=== PATIENT | male | born 1945 | race Caucasian/White ===

== ENCOUNTER 2018-11-15 15:49 | Inpatient (IN) ==
[2018-11-15] MEDS ORDERED: Ondansetron 4 MG/2 ML VIAL IVP PRN (20:38)
[2018-11-15] MEDS ORDERED: Naloxone 0.4 MG/ML INJ IVP PRN (20:38)
[2018-11-15] MEDS ORDERED: Acetaminophen 325 MG TABLET PO PRN (20:38)
--- NOTE | 2018-11-15 20:55 | Internal Med History&Physical ---
<Macario Kate - Last Filed: 11/16/18 01:35> Date of Encounter: 11/16/18 Time of Encounter: 20:41 Internal Medicine - H&P: HPI Chief complaint: leg weakness Admitted From: Emergency Dept Plans for Post Hospital Care: Home History of present illness: Mr. Perez is a 73 year old male with a PMHx of COPD, CHF, CKD, chronic back pain who presented to [facility] ED with a complaint of increased LE weakness. He is normally wheelchair bound at home due to chronic degerative disc disease for the past 10 years. He states that he has noticed some increased difficulty in moving his lower extremities both due to increased pain as well as weakness. He has also noticed increased numbness in the posterior legs extending to the mid hamstrings. He does have lower extremity numbness bilaterally up to the mid calf at baseline. He denies any trauma, falls, popping/tearing sensations. Symptoms have been present and constant for about a week. He describes the pain at a sharp, electrical type pain which starts in the back and radiates down the back of the legs. He also has symptoms of subjective fever last week, dysuria, and 4 episodes of urinary incontinence which he has not had before with previous UTIs. He does have to straight cath himself at home due to what sounds like neurogenic bladder, but states he can normally tell when he has a sensation to urinate. He denies any symptoms of chills, chest pains, SOB, nausea, vomiting. He has a colostomy bag and has not noticed any changes in output. Patient has had multiple back surgeries in the past most recently he states around 2005. He also states that he has had multiple office with pain management has tried epidurals, ablations, pain regimens. n the [facility] ED, vital sigs were unremarkable. Labs showed WBC 7.9, hemoglobin 11.4. Chemistry showed sodium 141, potassium 4.2, chloride 102, bicarbonate 30, BUN/creatinine of 16/1.07, glucose 134. UA was positive for nitrates, leukocyte esterase, bacteria and urine culture was obtained. CT of the lumbar spine showed no acute findings but did demonstrate severe degenerative changes. [facility] did contact Dr. Mantilla who recommended Neurology consultation. He was given 1 dose of rocephin and transferred to [place]. At time of my interview, patient is resting comforably. He has had no further episodes of incontinence since this morning. His pain is moderately well controlled after Toradol and [place] in [place]. His weakness is the same. Medical History as above Past surgical history: Multiple orthopedic and spinal surgeries. Social history: Never smoker, rare whiskey drinker, medical marijuana user, denies other drugs Family history: Noncontributory Past Med Surg Social Fam HX - Past Medical History Medical history: CHF, COPD Additional medical history: c. diff, neuropathy Psychiatric history: no psych history - Past Surgical History Surgical History: colectomy, colostomy Additional surgical history: failed back surgery, colectomy with colostomy - Social History Smoking Status: Never smoker Smokeless Tobacco Status: No Alcohol use: none Drug use: marijuana - Family History Mother Living Status: Hx Family Cardiac Disorders: Yes Hx Family Respiratory Disorders: No Hx Family Cancer: No Hx Family Endocrine Disorder: Yes Internal Medicine - H&P: Meds Lisinopril 2.5 mg PO DAILY 05/31/18 [History] Nystatin POWDER [Nystop] 1 appl TP TID PRN 05/31/18 [History] Tamsulosin [Flomax] 0.4 mg PO DAILY 05/31/18 [History] Ibuprofen [Ibu-200] 200 mg PO DAILY PRN 06/01/18 [History] Oxybutynin Chloride [Ditropan XL] 5 mg PO DAILY 06/01/18 [History] Pregabalin [Lyrica] 150 mg PO BID 06/02/18 [History] Albuterol Sulfate [Proventil Inhaler] 2 puff IH O6DLAIC PRN inhaler 06/05/18 [Rx] OxyCODONE/APAP 10/325 [Percocet 10/325 MG] 1 each PO Q6H PRN tablet 06/05/18 [Rx] Amoxicillin/Clavulanate [Augmentin] 875 mg PO BIDWM #14 tablet 06/07/18 [Rx] Warfarin [Coumadin] 2.5 mg PO 1800 #5 tablet 06/07/18 [Rx] Gabapentin [Neurontin] 600 mg PO TID 11/15/18 [History] Allergy/AdvReac Type Severity Reaction Status Date / Time No Known Allergies Allergy Verified 06/01/18 16:44 All Systems PM: A 10-system review of systems was performed and is negative for pertinent findings except as documented above in the HPI. Review of systems: - Constitutional: Admits to fevers. Denies chills, weight loss, generalized fatigue - EENT: Denies vision changes/blurriness, tinnitus, rhinorrhea, congestion, sore throat - CVS: Denies chest pain, palpitations, ZAVALA, orthopnea, edema, PND, - Pulm: Denies SOB, cough, sputum, hematemesis, wheezing - GI: Denies abdominal pain, anorexia, nausea, vomiting, diarrhea, constipation, melena - : Admits to dysuria, incontinence. Denies increased frequency, urgency, hematuria, - MSK: Admits to back and leg pain, weakness. Decreased ROM. - Skin: Denies rashes, ulcers, color changes, - Neuro: Admits to numbness, tingling. Denies SHAFER, - Constitutional Vitals: Temp Pulse Resp BP Pulse Ox 98.1 F 84 19 114/72 93 11/15/18 18:05 11/15/18 18:05 11/15/18 18:05 11/15/18 18:05 11/15/18 18:05 Exam: Gen.: Vitals noted. No acute distress. AAOx3, resting comfortably in bed. Morbidly obese. HEENT: PERRL/EOMI, oropharynx clear, Normocephalic, atraumatic, MMM Cardiac: RRR, no murmur, +S1/S2, 2+ BLE edema to mid calf Pulmonary: CTA bilaterally, no wheezes, rales or rhonchi, equal chest expansion, unlabored breathing Abdomen: soft, nontender, BS noted, no guarding, no palpable HSM. Colostomy in place, vental hernia Skin: warm and dry, no visible lesions. MSK: ROM passively intact but painful, no joint swelling noted, gait no assessed while in bed. Muscle strength 1/5 in bilateral LE. Reflexes unable to be elicited. Neuro: A&Ox3, moves all extremities, numb at baseline in feet, reported decreased sensation in posterior thigh, reports no saddle anesthesia. Psych: Appropriate mood and behavior, AOx3 Internal Med - H&P Results - Labs CBC & Chem 7: 11/16/18 00:13 11/16/18 00:13 - Assessment and Plan (1) Weakness Current Visit: Yes Status: Acute Assessment and plan: - Patient reported worsening of chronic bilateral extremity weakness - Also reports urinary incontinence which is not present at baseline - Patient does have a major degerative disc disease for which he is wheelchair bound - Denies truma - Suspect that this is worsening of his chronic disease, however with the incontinence and numbness we cannot exclude cauda equina - CT lumbar in [facility] shows no acute disease but severe chronic changes - No saddle anesthesia on my exam today. Bilateral weakness, numbness noted in extremities. - Dr. Mantilla called at [facility], reportedly did not feel that his services were needed at this time and recommended Neuro - Will order MRI lumbar spine stat Plan - MRI - Pain control, will start steroids - Will consider consultation with Neuro vs Ortho pending MRI results - Will consult spine surgery as well as neuro - Consider PT/OT if MRI negative (2) Degenerative disc disease Current Visit: Yes Status: Chronic Assessment and plan: - Chronic with multiple surgeries - Most recent 2005 - Pain moderately well controlled - Denies trauma and CT shows chronic changes - as above Qualifiers: Spinal region: lumbar Qualified Code(s): M51.36 - Other intervertebral disc degeneration, lumbar region (3) UTI (urinary tract infection) Current Visit: Yes Status: Acute Assessment and plan: - UA at [facility] shows evidence of infection, urine culture obtained there - Patient reports frequent UTIs, approximately every 6 months - No previous cultures to go off of. - Patient straight catheterization dependent at baseline - Symptoms include dysuria, incontinence. ?fever - Will start Rocephin Qualifiers: Urinary tract infection type: acute cystitis Hematuria presence: without hematuria Qualified Code(s): N30.00 - Acute cystitis without hematuria (4) COPD (chronic obstructive pulmonary disease) Current Visit: Yes Status: Chronic Assessment and plan: does not appear to be in acute exacerbation continue home inhalers once reconciled. Qualifiers: COPD type: emphysema Emphysema type: unspecified Qualified Code(s): J43.9 - Emphysema, unspecified (5) Morbid obesity Current Visit: Yes Status: Chronic Assessment and plan: chronic, advised dietary changes. Wheelchair bound (6) Urinary retention Current Visit: Yes Status: Chronic Assessment and plan: chronic, will place benjamin (7) DVT prophylaxis Current Visit: Yes Status: Acute Assessment and plan: continue home coumdin, pharmacy to dose - Time Spent With Patient Total time spent is greater than 50% in coordination of care (as documented) at patient's floor/unit and/or counseling patient: <Brock Pal - Last Filed: 11/16/18 03:43> Date of Encounter: 11/16/18 Time of Encounter: 02:00 - Constitutional Constitutional: no chills, no fever(s) - EENT Eyes: no blurry vision, no change in vision Ears: no ear pain, no tinnitus Nose, mouth and throat: no nasal congestion, no sinus pressure, no sore throat - Cardiovascular Cardiovascular ROS IM: no chest pain, no dyspnea - Respiratory Respiratory: no cough, no chest congestion, no excessive phlegm production - Gastrointestinal Gastrointestinal: no abdominal pain, no diarrhea, no vomiting - Genitourinary Genitourinary ROS male: dysuria, urinary frequency, urinary incontinence, no flank pain, no hematuria - Integumentary Integumentary IM: no rash, no jaundice - Neurological Neurological ROS: numbness (chronic BLE), no frequent falls, no headache(s) - Psychiatric Psychiatric: no anxiety, no depression - Allergic/Immunologic Allergic/Immunologic: no GI upset with certain foods - Constitutional Vitals: Temp Pulse Resp BP Pulse Ox 97.8 F 76 16 118/74 94 11/15/18 23:46 11/15/18 23:46 11/15/18 23:46 11/15/18 23:46 11/15/18 23:46 General appearance: Present: cooperative, A&O X 3, pleasant - Head Head exam: Present: normal inspection - Eye Eye exam: Present: PERRL. Absent: scleral icterus - ENT ENT exam: Present: mucous membranes dry, normal exam, normal oropharynx - Neck Neck exam general surgery: Present: full ROM, supple, trachea midline. Absent: tenderness, nuchal rigidity, thyromegaly - Respiratory Respiratory exam: Present: CTAB. Absent: chest wall tenderness, rales, rhonchi, wheezes - Cardiovascular Cardiovascular exam: Present: distant heart sounds, +S1, +S2. Absent: diastolic murmur, systolic murmur - GI/Abdominal GI/Abdominal exam: Present: normal bowel sounds, soft. Absent: hepatomegaly, splenomegaly, tenderness - Extremities Exam Extremities exam: Present: pedal edema (1-2+), warm, radial pulses palpable and symmetrical. Absent: calf tenderness, joint swelling, tenderness - Neurological Exam Neurological exam: Present: alert, CN II-XII intact, motor sensory deficit (numbers both feet up to mid calf -- chronic, not new) - Psychiatric Psychiatric exam: Present: normal affect, normal mood - Skin Skin exam: Present: dry, intact, warm Internal Med - H&P Results - Labs CBC & Chem 7: 11/16/18 00:13 11/16/18 00:13 Labs: Short CBC 11/16/18 Range/Units 00:13 WBC 7.1 (4.3-11.1) K/mcL Hgb 11.1 L (12.9-16.9) g/dL Hct 37.6 (37.5-50.1) % Plt Count 255 (140-400) K/mcL Neutrophils # 3.9 (1.6-8.9) K/mcL BMP 11/16/18 00:13 Sodium 137 Potassium 4.0 Chloride 105 Carbon Dioxide 26 BUN 20 Creatinine 1.10 Glucose 140 H Calcium 8.6 - Time Spent With Patient Total time spent is greater than 50% in coordination of care (as documented) at patient's floor/unit and/or counseling patient: - Attending Attestation I discussed the patient [place], past medical history, review of systems, lab data, imaging data, and exam findings with Dr. Kate. Patient has had chronic bilateral lower extremity weakness and numbness for over 10 years, but he recently noticed increasing weakness and numbness in his lower extremities over last week or so. He has been wheelchair-bound for over 10 years but he does transition out of wheelchair to his bed, couch, and/or other furniture pieces as needed. Over the last few days, he has been unable to transfer and has become progressively weaker. He has no new focal neurologic deficits other than increased weakness and numbness in his feet/legs beyond his baseline. He does not have any saddle anesthesia, but he has been incontinent of urine over last several days. He also does have UTI. Because of his above complaints, he went to [facility] and was transferred here for further workup and care. CT lumbar spine did not show any acute pathology and spine surgery consult was placed from [facility]. We will order an MRI of the spine and consult both spine and neurology services. Patient will likely benefit from PT and OT consults as well after he is seen by neurology and spine surgery. Steroids have been initiated empirically. However, I have very low suspicion for and CT does not suggest any evidence of spinal cord impingement. We will await further workup and treatment guidelines from neurology and spine surgery. Other than my comments above and documented exam findings, I agree with Dr. Kate's assessment and plan.
[2018-11-15] MEDS: *HR* OxyCODONE/APAP 7.5/325 TABLET PO PRN (21:15)
[2018-11-16 01:06] LABS: Basophils % 0.6 %; Eosinophils # 0.4 K/mcL (0.0-0.6); Hematocrit 37.6 % (37.5-50.1); Hemoglobin 11.1 g/dL (12.9-16.9); Lymphocytes % 28.6 %; Mean Corpuscular HGB Conc 29.5 g/dL (31.6-35.5); Mean Corpuscular Hemoglobin 23.3 pg (28.0-33.3); Mean Platelet Volume 8.9 fL (9.4-12.4); Monocytes # 0.7 K/mcL (0.0-1.3); Neutrophils # 3.9 K/mcL (1.6-8.9); Platelet Count 255 K/mcL (140-400); Red Blood Count 4.76 M/mcL (4.19-5.50); Red Cell Distribution Width 14.5 % (11.5-14.5); Segmented Neutrophils % 54.8 %; White Blood Count 7.1 K/mcL (4.3-11.1)
[2018-11-16 01:15] LABS: INR 2.1
[2018-11-16] MEDS: methylPREDNISolone 125 MG/2 ML VIAL IVP SCH ×4 (01:24→22:05)
[2018-11-16] MEDS: Gabapentin 300 MG CAPSULE PO SCH ×4 (01:25→20:40)
[2018-11-16] MEDS: Nystatin POWDER 30 GM BOTTLE TP SCH ×4 (01:25→20:41)
[2018-11-16 01:26] LABS: BUN/Creatinine Ratio 18 (6-26); Blood Urea Nitrogen 20 mg/dL (8-23); Calcium 8.6 mg/dL (8.6-10.3); Carbon Dioxide 26 mEq/L (23-29); Chloride 105 mEq/L (98-107); Glucose 140 mg/dL (70-105); Osmolality,Calculated 289 (280-300); Sodium 137 mEq/L (136-145); eGFR For African Americans > 60 (> 60); eGFR For Non-African Americans > 60 (> 60)
[2018-11-16] MEDS: cefTRIAXone 1,000 MG in Water for inj. (sterile) 10 ML IVP SCH (08:18)
--- NOTE | 2018-11-16 08:18 | Neurology - Consult Note ---
<Stefano Guerrero - Last Filed: 11/16/18 10:49> Date of Encounter: 11/16/18 Time of Encounter: 08:18 Assessment and Plan (1) Numbness Current Visit: Yes Status: Acute Patient presented with chief complaint of worsening lower extremity pain, weakness, and numbness, with associated urinary incontinence His baseline and related changes are illustrated in HPI, there was obviously a concern for Cauda Equina syndrome CT of the lumbar spine was performed at outside hospital demonstrating stable chronic Lumbar Disc Disease, no acute changes Due to urinary incontinence however patient was transferred to [facility] hospitalist team who ordered stat MRI and consulted Neurology and Spine Surgery Patient was also started on Solu-medrol and Rocephin for UTI, which he has chronically but not usually associated with incontinence As of this morning MRI is not completed, patient has had no worsening of symptoms or new symptoms Exam demonstrates significant lower extremity numbness and weakness but no saddle anesthesia or other neurological deficits Symptoms are most likely related to deconditioning and UTI exacerbating chronic lumbar disc disease and LE deficits Cauda equina is less likely, we will follow MRI results, recommend continuing Solu-medrol, we have also ordered B12 and Folate, agree with Rocephin GBS is considered, however he does not have history of recent GI illness or immunization If MRI is positive patient will require urgent surgical evaluation, if negative he will most likely benefit from aggressive outpatient rehabilitation We will continue to follow and make recommendations, further recommendations per Dr. Simons (2) Weakness Current Visit: Yes Status: Acute (3) Degenerative disc disease Current Visit: Yes Status: Chronic Qualifiers: Spinal region: lumbar Qualified Code(s): M51.36 - Other intervertebral disc degeneration, lumbar region (4) UTI (urinary tract infection) Current Visit: Yes Status: Acute Qualifiers: Urinary tract infection type: acute cystitis Hematuria presence: without hematuria Qualified Code(s): N30.00 - Acute cystitis without hematuria History of Present Illness Chief complaint: LE Weakness HPI: Mr. Perez is a pleasant 73 year old male with a past medical history of COPD, CHF, CKD, lumbar degenerative disc disease and chronic low back pain. He was transferred overnight from [facility]. Patient is chronically wheelchair bound due to chronic lower extremity pain and weakness secondary to lumbar degenerative disc disease. He also requires straight catheterization due to chronic neurogenic bladder and has frequent urinary tract infections. Over the last week the patient has experienced worsening bilateral lower extremity pain and weakness past his baseline, and has also experienced urinary incontinence which is a new symptom for him. He presented to [facility] for the symptoms where they performed CT of the lumbar spine which was negative for any new changes as well as any evidence of new spinal cord impingement or cauda equina. However due to the urinary incontinence he was transferred to [place] to rule out new spinal cord impingement or cauda equina with MRI. The patient was accepted by the hospitalist team here who admitted him for workup and ordered stat MRI of the lumbar spine and consulted neurology and spinal surgery. As of this morning MRI is not completed, luckily patient has not had any worsening of his symptoms. On my exam the patient confirms the story received in documentation stating that over the last week he has had worsening of his chronic bilateral lower extremity pain and numbness. He states that his baseline is numbness in his calves and feet and pain in bilateral lower extremities from the low back to the distal ex tremities. However over the last week his numbness has extended up to his hips and his pain has worsened. His baseline has also included severe weakness of his plantar flexion and dorsiflexion as well as moderate weakness involving his quadriceps/hamstrings/gluteal muscles. However over the last week his weakness has increased in his hips and thighs to wear he is now unable to pivot and transfer like he was previously. He states that these symptoms did not progress insidiously over the last week and did not have an acute onset, and were not related with any associated symptoms such as any upper extremity weakness or numbness, facial droop, visual changes, altered mental status, convulsions, or other stroke or seizure like symptoms. However he has had urinary incontinence several times over the last week, where he was not able to tell he was urinating. Urinary incontinence is new to him, however he does deny saddle anesthesia. I informed him that based on his history and physical there was a concern for cauda equina which is why he was transferred here and MRI is pending. He stated that he is hopeful that the MRI will not show any new spinal cord impingement and that his symptoms are simply due to deconditioning. He informed me that his goal is to proceed to inpatient rehabilitation where he can gain his strength and independence back and be able to function at home as he was prior to this week. Past Med Surg Social Fam HX - Past Medical History Medical history: CHF, COPD Additional medical history: c. diff, neuropathy Psychiatric history: no psych history - Past Surgical History Surgical History: colectomy, colostomy Additional surgical history: failed back surgery, colectomy with colostomy - Social History Smoking Status: Never smoker Smokeless Tobacco Status: No Alcohol use: none Drug use: marijuana - Family History Mother Living Status: Hx Family Cardiac Disorders: Yes Hx Family Respiratory Disorders: No Hx Family Cancer: No Hx Family Endocrine Disorder: Yes Medications and Allergies Lisinopril 2.5 mg PO DAILY 05/31/18 [History] Nystatin POWDER [Nystop] 1 appl TP TID PRN 05/31/18 [History] Tamsulosin [Flomax] 0.4 mg PO DAILY 05/31/18 [History] Ibuprofen [Ibu-200] 200 mg PO DAILY PRN 06/01/18 [History] Oxybutynin Chloride [Ditropan XL] 5 mg PO DAILY 06/01/18 [History] Pregabalin [Lyrica] 150 mg PO BID 06/02/18 [History] Albuterol Sulfate [Proventil Inhaler] 2 puff IH [id number] PRN inhaler 06/05/18 [Rx] OxyCODONE/APAP 10/325 [Percocet 10/325 MG] 1 each PO Q6H PRN tablet 06/05/18 [Rx] Amoxicillin/Clavulanate [Augmentin] 875 mg PO BIDWM #14 tablet 06/07/18 [Rx] Warfarin [Coumadin] 2.5 mg PO 1800 #5 tablet 06/07/18 [Rx] Gabapentin [Neurontin] 600 mg PO TID 11/15/18 [History] Allergy/AdvReac Type Severity Reaction Status Date / Time No Known Allergies Allergy Verified 06/01/18 16:44 All Systems: The remainder of the systems were reviewed and are negative Review of Systems: 10 point review of systems is negative other than mentioned in history of pr esent illness. Physical Examination - Vital Signs Vital Signs: Initial Vital Signs Temp Pulse Resp BP Pulse Ox 98.1 F 84 19 114/72 93 11/15/18 18:05 11/15/18 18:05 11/15/18 18:05 11/15/18 18:05 11/15/18 18:05 - Exam Exam: General Examination: *CONSTITUTIONAL: Alert and oriented x3, no acute distress *GENERAL APPEARANCE OF PATIENT appears healthy and well groomed *EYES: pupils equal, round, reactive to light and accommodation, conjunctiva c lear without masses or ulcerations *ASSESSMENT OF MUSCLE STRENGTH IN THE UPPER AND LOWER EXTREMITIES bilateral deltoid, bicep, tricep, automation technician strength 5/5, hip flexors and quadriceps 2/5 anterior tibialis, plantarflexion of the foot 0/5 *MUSCLE TONE IN THE UPPER AND LOWER EXTREMITIES normal. No abnormal movements, fasciculations or atrophy identified. Neurological: *ORIENTATION to person, situation, time and place *LANGUAGE AND FUNCTION no significant aphasia or dysarthia was noted *ATTENTION AND CONCENTRATION are normal *FUND OF KNOWLEDGE aware of current events, past history, vocabulary *MENTAL attention span and concentration normal. *CN II visual guardado intact *CN III,IV, PERRLA extraocular eye movements were full, no nystagmus and no ptosis noted. *CN V shows normal sensation and jaw opens symmetrically. *CN VII shows normal facial movement symmetrically, upper and lower bilaterally. *CN VIII shows no significant hearing loss on exam *CN IX-X palate elevated symmetrically *CN XI normal strength in the sternocleidomastoid muscles, symmetrical shoulder shrugging. *CN XII tongue protruded in the midline, with normal strength and movement. *SENSORY EXAMINATION light touch normal from the waist up. Light touch is present and normal in the groin and saddle region. Light touch sensation is present but diminished from the waist to the proximal leg, slightly worse on the left. Light touch, deep pressure, proprioception are absent in bilateral ankles and toes. *REFLEXES: deep tendon reflexes were normal and symmetrical in the bilateral upper extremities , absent in bilateral lower extremities *CEREBELLAR TESTING normal finger to nose testing *PAIN LEVEL no pain on palpation, pain with manipulation of the hips and lower back Results - Laboratory Findings CBC and BMP: 11/16/18 06:29 11/16/18 06:29 Abnormal lab findings: Abnormal lab results Hgb 11.1 g/dL (12.9-16.9) L 11/16/18 00:13 MCV 79.0 fL (83.0-100.0) L 11/16/18 00:13 MCH 23.3 pg (28.0-33.3) L 11/16/18 00:13 MCHC 29.5 g/dL (31.6-35.5) L 11/16/18 00:13 MPV 8.9 fL (9.4-12.4) L 11/16/18 00:13 PT 24.0 Seconds (9.4-12.1) H 11/16/18 00:13 Glucose 140 mg/dL (70-105) H 11/16/18 00:13 Consult Discharge Plan - Plan Referrals: Helga Ross, WIRE WORKER [Primary Care Provider] - <Haresh Simons I - Last Filed: 11/16/18 16:54> Date of Encounter: 11/16/18 Assessment and Plan (1) Lumbar spinal stenosis Current Visit: Yes Status: Acute This patient who has an history of for severe lumbar stenosis status post surgeries baseline has a footdrop as well as significant weakness in lower extremities and is bedbound now admitted with increasing weakness in both upper extremities and has difficulty in getting up and at the same time also having i ncreasing urinary incontinence, he already had a colostomy bag in place. Now with these increasing symptoms and with a history of severe lumbar stenosis certainly concerned that he may have worsening of his stenosis Scheduled for MRI of the lumbar spine are recommended doing it is stat. Has been is started on IV steroids suggested to continue on it On neurological examination did not see, sensory level though he did have a decreased sensation to the pinprick in his both lower extremities above the knees bilaterally and minimal movement in hip flexion and extension and knee extension in the right lower extremity more than the left. In the patient like this who had a significant baseline weakness and a stenosis of be difficult a date that indeed it is a cauda equina but certainly that poss ibility remains. As neurological examination is very limited Suggest MRI scan SUZANNE at the same time I would recommend a spine consultation with Dr. Mercado's, to see if indeed he would benefit from some intervention or if unable to get any intervention locally he may need to be transferred to a tertiary care center-like [facility] where he had his previous spine surgeries. Haresh Simons MD (2) Numbness Current Visit: Yes Status: Acute Pt was seen and examined, my medical decision was reviewed with the Resident Physician, I agree with the documented findings, disposition and treatment plan, as described except to the extent set forth below Haresh Simons MD History of Present Illness HPI: Mr. Perez is a 73 year old male All Systems: The remainder of the systems were reviewed and are negative Physical Examination - Vital Signs Vital Signs: Initial Vital Signs Temp Pulse Resp BP Pulse Ox 98.1 F 84 19 114/72 93 11/15/18 18:05 11/15/18 18:05 11/15/18 18:05 11/15/18 18:05 11/15/18 18:05 Results - Laboratory Findings CBC and BMP: 11/16/18 06:29 11/16/18 06:29 Abnormal lab findings: Abnormal lab results Hgb 12.1 g/dL (12.9-16.9) L 11/16/18 06:29 MCV 77.7 fL (83.0-100.0) L 11/16/18 06:29 MCH 22.9 pg (28.0-33.3) L 11/16/18 06:29 MCHC 29.4 g/dL (31.6-35.5) L 11/16/18 06:29 RDW 14.6 % (11.5-14.5) H 11/16/18 06:29 MPV 9.2 fL (9.4-12.4) L 11/16/18 06:29 PT 24.0 Seconds (9.4-12.1) H 11/16/18 00:13 Glucose 177 mg/dL (70-105) H 11/16/18 06:29 Positive (Negative) A 11/16/18 09:30
[2018-11-16 08:36] LABS: Basophils % 0.3 %; Eosinophils % 0.4 %; Hematocrit 41.1 % (37.5-50.1); Hemoglobin 12.1 g/dL (12.9-16.9); Immature Granulocytes % 2.1 % (0-4); Lymphocytes # 1.2 K/mcL (0.6-4.6); Lymphocytes % 16.6 %; Mean Corpuscular HGB Conc 29.4 g/dL (31.6-35.5); Mean Corpuscular Hemoglobin 22.9 pg (28.0-33.3); Mean Corpuscular Volume 77.7 fL (83.0-100.0); Mean Platelet Volume 9.2 fL (9.4-12.4); Monocytes # 0.1 K/mcL (0.0-1.3); Monocytes % 1.3 %; Neutrophils # 5.9 K/mcL (1.6-8.9); Platelet Count 264 K/mcL (140-400); Red Blood Count 5.29 M/mcL (4.19-5.50); Red Cell Distribution Width 14.6 % (11.5-14.5); Segmented Neutrophils % 79.3 %; White Blood Count 7.5 K/mcL (4.3-11.1)
[2018-11-16 08:52] LABS: BUN/Creatinine Ratio 22 (6-26); Blood Urea Nitrogen 22 mg/dL (8-23); Carbon Dioxide 25 mEq/L (23-29); Chloride 102 mEq/L (98-107); Glucose 177 mg/dL (70-105); Magnesium 2.1 mg/dL (1.6-2.6); Osmolality,Calculated 292 (280-300); Potassium 4.9 mEq/L (3.5-5.1); Sodium 137 mEq/L (136-145); eGFR For African Americans > 60 (> 60); eGFR For Non-African Americans > 60 (> 60)
[2018-11-16] MEDS: *HR* OxyCODONE/APAP 7.5/325 TABLET PO PRN ×2 (11:21→17:37)
--- NOTE | 2018-11-16 11:37 | Internal Med Progress Note ---
Hospitalist Progress Note - Encounter Date of Encounter: 11/16/18 Time of Encounter: 11:35 - Subjective Interval History: Patient seen and examined in the room. He reported unable to move both legs with accompanied numbness on the back of both legs, which have been ongoing for a week. Denies headache, seizure activity, dysphagia, or aphasia. Has history of back pain and back surgery with chronic bilateral leg weakness, however the weakness significantly worsened in the past week so that he was unable to move both legs at all. His baseline is that he can move both legs and the put on socks. - Exam Vitals: Temp Pulse Resp BP Pulse Ox 97.9 F 90 16 125/70 92 11/16/18 11:10 11/16/18 11:10 11/16/18 11:10 11/16/18 11:10 11/16/18 11:10 Exam: Gen.: Vitals noted. No acute distress. AAOx3, resting comfortably in bed. Morbidly obese. HEENT: PERRL/EOMI, oropharynx clear, Normocephalic, atraumatic, MMM Cardiac: RRR, no murmur, +S1/S2, 2+ BLE edema to mid calf Pulmonary: CTA bilaterally, no wheezes, rales or rhonchi, equal chest expansion, unlabored breathing Abdomen: soft, nontender, BS noted, no guarding, no palpable HSM. Colostomy in place, vental hernia Skin: warm and dry, no visible lesions. MSK: ROM passively intact but painful, no joint swelling noted, gait no assessed while in bed. Muscle strength 1/5 in bilateral LE. Reflexes unable to be falguni cited. Neuro: A&Ox3, moves all extremities, numb at baseline in feet, reported decreased sensation in posterior thigh, reports no saddle anesthesia. Psych: Appropriate mood and behavior, AOx3 - Assessment and Plan (1) Weakness Current Visit: Yes Status: Acute Assessment and Plan: 73-year-old male presented with acute onset of bilateral leg weakness accompanied by numbness. He has history of chronic back pain and back surgery, has baseline bilateral leg weakness and on wheelchair, but his baseline is that he was able to lift up both legs and put on socks, however, he cannot perform these for a week. Acute cord compression was suspected by neurology, IV steroids were started. Pending lumbar MRI. Neurology on board, appreciate help. (2) Morbid obesity Current Visit: No Status: Chronic Assessment and Plan: Weight control discussed with patient. (3) Hx of deep venous thrombosis Current Visit: No Status: Chronic Assessment and Plan: Continue Coumadin, pharmacy to dose. (4) Degenerative disc disease Current Visit: No Status: Chronic Assessment and Plan: Continue pain control, management as above. (5) UTI (urinary tract infection) Current Visit: Yes Status: Acute Assessment and Plan: Has history of of MRSA UTI. Urine culture pending, currently on Rocephin. (6) DVT prophylaxis Current Visit: Yes Status: Acute Assessment and Plan: Continue Coumadin. - Time Spent with Patient Total time spent is greater than 50% in coordination of care (as documented) at patient's floor/unit and/or counseling patient: Greater than 35 minutes Plan of Care Discussed with: patient Internal Medicine: Result - Labs CBC & Chem 7: 11/16/18 06:29 11/16/18 06:29 Labs: Short CBC 11/16/18 11/16/18 Range/Units 00:13 06:29 WBC 7.1 7.5 (4.3-11.1) K/mcL Hgb 11.1 L 12.1 L (12.9-16.9) g/dL Hct 37.6 41.1 (37.5-50.1) % Plt Count 255 264 (140-400) K/mcL Neutrophils # 3.9 5.9 (1.6-8.9) K/mcL BMP 11/16/18 11/16/18 00:13 06:29 Sodium 137 137 Potassium 4.0 4.9 Chloride 105 102 Carbon Dioxide 26 25 BUN 20 22 Creatinine 1.10 1.01 Glucose 140 H 177 H Calcium 8.6 9.0 - ABG Interpretation ABG results: PT/INR, D-dimer PT 24.0 Seconds (9.4-12.1) H 11/16/18 00:13 Consult Discharge Plan - Plan Referrals: Helga Ross, MANUFACTURING TEAM LEADER [Primary Care Provider] - (4) Degenerative disc disease Qualifiers: Spinal region: lumbar Qualified Code(s): M51.36 - Other intervertebral disc degeneration, lumbar region (5) UTI (urinary tract infection) Qualifiers: Urinary tract infection type: acute cystitis Hematuria presence: without hematuria Qualified Code(s): N30.00 - Acute cystitis without hematuria
[2018-11-16 12:18] LABS: Folate 15.3 ng/mL (3.0-16.0)
[2018-11-16] MEDS ORDERED: *HR* Warfarin 3 MG TABLET PO ONE (18:00)
[2018-11-16] MEDS ORDERED: Warfarin perPT PO PRN (18:00)
[2018-11-16] MEDS ORDERED: 0.9 % Sodium Chloride Mini Bag 100 ML ONE (22:32)
[2018-11-17] MEDS ORDERED: 0.9 % Sodium Chloride Mini Bag 100 ML ONE (02:43)
[2018-11-17 07:56] LABS: Basophils % 0.1 %; Hematocrit 37.4 % (37.5-50.1); Hemoglobin 11.2 g/dL (12.9-16.9); Immature Granulocytes % 1.5 % (0-4); Lymphocytes # 1.5 K/mcL (0.6-4.6); Lymphocytes % 11.8 %; Mean Corpuscular HGB Conc 29.9 g/dL (31.6-35.5); Mean Platelet Volume 9.2 fL (9.4-12.4); Monocytes # 0.3 K/mcL (0.0-1.3); Monocytes % 2.5 %; Neutrophils # 10.7 K/mcL (1.6-8.9); Platelet Count 263 K/mcL (140-400); Red Blood Count 4.86 M/mcL (4.19-5.50); Red Cell Distribution Width 14.3 % (11.5-14.5); Segmented Neutrophils % 84.1 %
[2018-11-17 07:59] LABS: White Blood Count 12.7 K/mcL (4.3-11.1)
[2018-11-17 08:00] LABS: INR 1.4; Prothrombin Time 15.6 Seconds (9.4-12.1)
[2018-11-17] MEDS: cefTRIAXone 1,000 MG in Water for inj. (sterile) 10 ML IVP SCH (08:02)
[2018-11-17] MEDS: Gabapentin 300 MG CAPSULE PO SCH ×2 (08:02→13:43)
[2018-11-17] MEDS: *HR* OxyCODONE/APAP 7.5/325 TABLET PO PRN ×3 (08:03→17:55)
[2018-11-17 08:09] LABS: BUN/Creatinine Ratio 26 (6-26); Blood Urea Nitrogen 24 mg/dL (8-23); Calcium 8.9 mg/dL (8.6-10.3); Carbon Dioxide 25 mEq/L (23-29); Chloride 102 mEq/L (98-107); Glucose 230 mg/dL (70-105); Osmolality,Calculated 295 (280-300); Potassium 4.3 mEq/L (3.5-5.1); Sodium 137 mEq/L (136-145); eGFR For African Americans > 60 (> 60); eGFR For Non-African Americans > 60 (> 60)
--- NOTE | 2018-11-17 08:58 | Internal Med Progress Note ---
Hospitalist Progress Note - Encounter Date of Encounter: 11/17/18 Time of Encounter: 08:46 - Subjective Interval History: Patient seen and examined in the room. He had an uneventful night. Denies fever, chills, or night sweats. - Exam Vitals: Temp Pulse Resp BP Pulse Ox 97.9 F 84 16 164/81 95 11/17/18 07:18 11/17/18 07:18 11/17/18 07:18 11/17/18 07:18 11/17/18 07:18 Exam: Gen.: Vitals noted. No acute distress. AAOx3, resting comfortably in bed. Morbidly obese. HEENT: PERRL/EOMI, oropharynx clear, Normocephalic, atraumatic, MMM Cardiac: RRR, no murmur, +S1/S2, 2+ BLE edema to mid calf Pulmonary: CTA bilaterally, no wheezes, rales or rhonchi, equal chest expansion, unlabored breathing Abdomen: soft, nontender, BS noted, no guarding, no palpable HSM. Colostomy in place, vental hernia Skin: warm and dry, no visible lesions. MSK: ROM passively intact but painful, no joint swelling noted, gait no assessed while in bed. Muscle strength 1/5 in bilateral LE. Reflexes unable to be elicited. Neuro: A&Ox3, moves all extremities, numb at baseline in feet, reported decreased sensation in posterior thigh, reports no saddle anesthesia. Psych: Appropriate mood and behavior, AOx3 - Assessment and Plan (1) Weakness Current Visit: Yes Status: Acute Assessment and Plan: 11/16 73-year-old male presented with acute onset of bilateral leg weakness accompanied by numbness. He has history of chronic back pain and back surgery, has baseline bilateral leg weakness and on wheelchair, but his baseline is that he was able to lift up both legs and put on socks, however, he cannot perform these for a week. Acute cord compression was suspected by neurology, IV steroids were started. Pending lumbar MRI. Neurology on board, appreciate help. 11/17 Lumbar spine MRI showed severe spinal stenosis at the T11-T12. Spinal surgery was consulted, thoracic spine MRI ordered. Continue IV steroids or not. INR 2.1 yesterday received vitamin K and FFP overnight, current INR 1.4. Neuro and orthopedics on board, appreciate help. (2) Morbid obesity Current Visit: No Status: Chronic Assessment and Plan: Weight control discussed with patient. (3) Hx of deep venous thrombosis Current Visit: No Status: Chronic Assessment and Plan: Coumadin on hold due to of common surgery. (4) Degenerative disc disease Current Visit: No Status: Chronic Assessment and Plan: Continue pain control, management as above. (5) UTI (urinary tract infection) Current Visit: Yes Status: Acute Assessment and Plan: Has history of of MRSA UTI. Urine culture pending, currently on Rocephin. Also started patient on vancomycin yesterday due to possible recurrent MRSA UTI. (6) DVT prophylaxis Current Visit: Yes Status: Acute Assessment and Plan: SCDs, Coumadin on hold due to upcoming surgery. - Time Spent with Patient Total time spent is greater than 50% in coordination of care (as documented) at patient's floor/unit and/or counseling patient: Greater than 35 minutes Plan of Care Discussed with: patient Internal Medicine: Result - Labs CBC & Chem 7: 11/17/18 07:15 11/17/18 07:15 Labs: Short CBC 11/17/18 Range/Units 07:15 WBC 12.7 H D (4.3-11.1) K/mcL Hgb 11.2 L (12.9-16.9) g/dL Hct 37.4 L (37.5-50.1) % Plt Count 263 (140-400) K/mcL Neutrophils # 10.7 H (1.6-8.9) K/mcL BMP 11/16/18 11/17/18 06:29 07:15 Sodium 137 137 Potassium 4.9 4.3 Chloride 102 102 Carbon Dioxide 25 25 BUN 22 24 H Creatinine 1.01 0.94 Glucose 177 H 230 H Calcium 9.0 8.9 - ABG Interpretation ABG results: PT/INR, D-dimer PT 15.6 Seconds (9.4-12.1) H 11/17/18 07:15 - Impressions Impressions Hip X-Ray 11/16/18 17:02 IMPRESSION: 1. No acute fracture of the left hip identified; however, evaluation is technically limited by patient positioning. Chronic appearing deformity has been stable since 05/31/2018. 2. Severe left hip osteoarthritis. 3. Moderate right hip osteoarthritis. D/ / 11/16/2018 20:33:32 Hien Jackson MD / oliver Interpreting Provider: Hien Jackson MD Lumbar Spine MRI 11/16/18 20:40 IMPRESSION: 1. Postsurgical change from posterior fusion involving L3 through S1. 2. Severe spinal canal stenosis is seen at T11-T12. Consider further evaluation with dedicated MRI of the thoracic spine. 3. Moderate to severe spinal canal stenosis at L1-L2 and L2-L3 with moderate stenosis at L3-L4 and L4-L5. 4. Additional degenerative changes of the lumbar spine as above. D/ / Daniel Munoz MD / Daniel Munoz MD Interpreting Provider: Daniel Munoz MD Consult Discharge Plan - Plan Referrals: Helga Ross, BRANCH CONTROLLER [Primary Care Provider] - (4) Degenerative disc disease Qualifiers: Spinal region: lumbar Qualified Code(s): M51.36 - Other intervertebral disc degeneration, lumbar region (5) UTI (urinary tract infection) Qualifiers: Urinary tract infection type: acute cystitis Hematuria presence: without hematuria Qualified Code(s): N30.00 - Acute cystitis without hematuria
[2018-11-17] MEDS ORDERED: Vancomycin (wt based) 1,000 MG VIAL IVPB SCH (09:00)
[2018-11-17] MEDS ORDERED: Aminoglycoside Consult 1 EACH MC ONE (09:13)
[2018-11-17] MEDS: Nystatin POWDER 30 GM BOTTLE TP SCH ×2 (09:50→13:43)
--- NOTE | 2018-11-17 10:02 | Neurology Progress Note ---
<Stefano Guerrero Oscar - Last Filed: 11/17/18 10:00> Date of Encounter: 11/17/18 Time of Encounter: 10:00 Assessment and Plan (1) Numbness Current Visit: Yes Status: Acute Patient presented with chief complaint of worsening lower extremity pain, weakness, and numbness, with associated urinary incontinence His baseline and related changes are illustrated in HPI, there was obviously a concern for Cauda Equina syndrome CT of the lumbar spine was performed at outside hospital demonstrating stable chronic Lumbar Disc Disease, no acute changes Due to urinary incontinence however patient was transferred to [facility] hospitalist team who ordered stat MRI and consulted Neurology and Spine Surgery Patient was also started on Solu-medrol and Rocephin for UTI, which he has chronically but not usually associated with incontinence Exam demonstrates significant lower extremity numbness and weakness but no saddle anesthesia or other neurological deficits Lumbar spine MRI demonstrated significant areas of disc protrusion and spinal canal stenosis at multiple regions Orthopedic spine surgery evaluated the patient yesterday, thoracic MRI and possible laminectomy pending today Recommend continuing intravenous steroids for the time being, no other re commendations from neurology standpoint We will likely sign off, further recommendations per Dr. Simons (2) Weakness Current Visit: Yes Status: Acute (3) Degenerative disc disease Current Visit: No Status: Chronic Qualifiers: Spinal region: lumbar Qualified Code(s): M51.36 - Other intervertebral disc degeneration, lumbar region Subjective Principal diagnosis: spinal stenosis Interval history: No acute events overnight, although the patient states he did not sleep well due to blood and plasma infusions. He was seen by orthopedic spine surgery yesterday who is considering laminectomy today. He feels that steroids are significantly helping the pressure in his low back. Objective - Constitutional Vitals: Temp Pulse Resp BP Pulse Ox 97.9 F 84 16 164/81 95 11/17/18 07:18 11/17/18 07:18 11/17/18 07:18 11/17/18 07:18 11/17/18 07:18 Exam: General Examination: *CONSTITUTIONAL: Alert and oriented x3, no acute distress *GENERAL APPEARANCE OF PATIENT appears healthy and well groomed *EYES: pupils equal, round, reactive to light and accommodation, conjunctiva clear without masses or ulcerations *ASSESSMENT OF MUSCLE STRENGTH IN THE UPPER AND LOWER EXTREMITIES bilateral deltoid, bicep, tricep, cage maker strength 5/5, hip flexors and quadriceps 2/5 anterior tibialis, plantarflexion of the foot 0/5 *MUSCLE TONE IN THE UPPER AND LOWER EXTREMITIES normal. No abnormal movements, fasciculations or atrophy identified. Neurological: *ORIENTATION to person, situation, time and place *LANGUAGE AND FUNCTION no significant aphasia or dysarthia was noted *ATTENTION AND CONCENTRATION are normal *FUND OF KNOWLEDGE aware of current events, past history, vocabulary *MENTAL attention span and concentration normal. *CN II visual guardado intact *CN III,IV, PERRLA extraocular eye movements were full, no nystagmus and no ptosis noted. *CN V shows normal sensation and jaw opens symmetrically. *CN VII shows normal facial movement symmetrically, upper and lower bilaterally. *CN VIII shows no significant hearing loss on exam *CN IX-X palate elevated symmetrically *CN XI normal strength in the sternocleidomastoid muscles, symmetrical shoulder shrugging. *CN XII tongue protruded in the midline, with normal strength and movement. *SENSORY EXAMINATION light touch normal from the waist up. Light touch is present and normal in the groin and saddle region. Light touch sensation is present but diminished from the waist to the proximal leg, slightly worse on the left. Light touch, deep pressure, proprioception are absent in bilateral ankles and toes. *REFLEXES: deep tendon reflexes were normal and symmetrical in the bilateral upper extremities , absent in bilateral lower extremities *CEREBELLAR TESTING normal finger to nose testing *PAIN LEVEL no pain on palpation, pain with manipulation of the hips and lower back Results - Laboratory Findings CBC and BMP: 11/17/18 07:15 11/17/18 07:15 Abnormal lab findings: Abnormal lab results WBC 12.7 K/mcL (4.3-11.1) H D 11/17/18 07:15 Hgb 11.2 g/dL (12.9-16.9) L 11/17/18 07:15 Hct 37.4 % (37.5-50.1) L 11/17/18 07:15 MCV 77.0 fL (83.0-100.0) L 11/17/18 07:15 MCH 23.0 pg (28.0-33.3) L 11/17/18 07:15 MCHC 29.9 g/dL (31.6-35.5) L 11/17/18 07:15 RDW 14.6 % (11.5-14.5) H 11/16/18 06:29 MPV 9.2 fL (9.4-12.4) L 11/17/18 07:15 Neutrophils # 10.7 K/mcL (1.6-8.9) H 11/17/18 07:15 PT 15.6 Seconds (9.4-12.1) H 11/17/18 07:15 BUN 24 mg/dL (8-23) H 11/17/18 07:15 Glucose 230 mg/dL (70-105) H 11/17/18 07:15 Nasal Screen MRSA (PCR) Positive (Negative) A 11/16/18 09:30 Consult Discharge Plan - Plan Referrals: Helga Ross, GARAGEMAN [Primary Care Provider] - <Haresh Simons I - Last Filed: 11/17/18 11:59> Date of Encounter: 11/17/18 Assessment and Plan (1) Lumbar spinal stenosis Current Visit: Yes Status: Acute Pt was seen and examined, my medical decision was reviewed with the Resident Physician, I agree with the documented findings, disposition and treatment plan, as described except to the extent set forth below Patient remained stable but continued to have significant weakness of lower extr emities evaluated by spine surgery likely getting surgery today or tomorrow in the meantime continue on steroids Also scheduled for an MRI of the thoracic spine due to the concern that he may have higher thoracic a stenosis as well Please call if needed Haresh Simons MD (2) Numbness Current Visit: Yes Status: Acute Objective - Constitutional Vitals: Temp Pulse Resp BP Pulse Ox 97.9 F 77 16 140/77 93 11/17/18 10:55 11/17/18 10:55 11/17/18 10:55 11/17/18 10:55 11/17/18 10:55 Results - Laboratory Findings CBC and BMP: 11/17/18 07:15 11/17/18 07:15 Abnormal lab findings: Abnormal lab results WBC 12.7 K/mcL (4.3-11.1) H D 11/17/18 07:15 Hgb 11.2 g/dL (12.9-16.9) L 11/17/18 07:15 Hct 37.4 % (37.5-50.1) L 11/17/18 07:15 MCV 77.0 fL (83.0-100.0) L 11/17/18 07:15 MCH 23.0 pg (28.0-33.3) L 11/17/18 07:15 MCHC 29.9 g/dL (31.6-35.5) L 11/17/18 07:15 RDW 14.6 % (11.5-14.5) H 11/16/18 06:29 MPV 9.2 fL (9.4-12.4) L 11/17/18 07:15 Neutrophils # 10.7 K/mcL (1.6-8.9) H 11/17/18 07:15 PT 15.6 Seconds (9.4-12.1) H 11/17/18 07:15 BUN 24 mg/dL (8-23) H 11/17/18 07:15 Glucose 230 mg/dL (70-105) H 11/17/18 07:15 Nasal Screen MRSA (PCR) Positive (Negative) A 11/16/18 09:30
[2018-11-17] MEDS: methylPREDNISolone 125 MG/2 ML VIAL IVP SCH (11:08)
--- NOTE | 2018-11-17 16:58 | Spinal Consult Note ---
Date of Encounter: 11/17/18 Time of Encounter: 16:58 Assessment and Plan (1) Thoracic stenosis Current Visit: Yes Status: Chronic On exam he is morbidly obese lying in bed in mild distress. Afebrile vital signs stable. Pupils equally round. Trachea is midline. Chest excursions are symmetric. Cardiovascular regular rate and rhythm. Abdomen obese nontender. He has limitation of range of motion of the left hip. He has weakness in the bilateral lower extremities and all the proximal lumbar innervated musculature including iliopsoas, gluteus hands dorsiflexors and plantar flexors. He can fire them but they are significantly weak approximate 3 on a motor scale. He has no clonus. He has a negative Slick sign. MRI of the thoracic spine from today reveals severe thoracic stenosis T10-T12. There are multilevel degenerative changes. MRI of the lumbar spine at the proximal portion revealed the T11-T12 stenosis and evidence of a multilevel instrumented lumbar decompression and fusion construct. There is no hardware complication seen. AP and lateral views of the hip reveal a dysplastic left hip with severe osteoarthritic changes and evidence of a probable previous hip fracture at this level. Impression: 1) thoracic stenosis 2) bilateral leg weakness 3) left hip dysplasia and severe osteoarthritis 4) status post multilevel lumbar fusion and decompression Plan: Due to his concerning and worsening neurologic findings of recent onset I find it reasonable to consider surgery in the form of a laminectomy T10-T12. I talked to the hospitalist regarding medical optimization and clearance measures and I have prepared the patient appropriately including correcting his coagulopathy. Risk benefits possible complications and alternatives were discussed with the patient and he would like to proceed. (2) Bilateral leg weakness Current Visit: Yes Status: Acute History of Present Illness Chief complaint: Leg weakness HPI: Mr. Perez is a 73 year old male with a PMHx of COPD, CHF, CKD, chronic back pain who presented to [facility] ED with a complaint of increased LE weakness. He is normally wheelchair bound at home due to chronic degerative disc disease for the past 10 years, significant left hip dysplasia, and multilevel lumbar fusion.. He states that he has noticed some increased difficulty in moving his lower extremities both due to increased pain as well as weakness over the past week. He has also noticed increased numbness in the posterior legs extending to the mid hamstrings. He does have lower extremity numbness bilaterally up to the mid calf at baseline. He denies any t rauma, falls, popping/tearing sensations. He describes the pain at a sharp, electrical type pain which starts in the back and radiates down the back of the legs. He does have a previous history of self-catheterization due to what sounds like neurogenic bladder, but states he can normally tell when he has a sensation to urinate. He denies any symptoms of chills, chest pains, SOB, nausea, vomiting. He has a colostomy bag and has not noticed any changes in output. Patient has had multiple back surgeries in the past including multi- level lumbar decompression and fusion done in outside facility most recently around 2005. We are asked to see regarding his weakness of his lower extremities. He was initially seen for consultation 11/16/2018 and at that time I ordered MRI of his thoracic spine which is now currently available. Past Med Surg Social Fam HX - Past Medical History Medical history: CHF, COPD Additional medical history: c. diff, neuropathy Psychiatric history: no psych history - Past Surgical History Surgical History: colectomy, colostomy Additional surgical history: failed back surgery, colectomy with colostomy - Social History Smoking Status: Never smoker Smokeless Tobacco Status: No Alcohol use: none Drug use: marijuana - Family History Mother Living Status: Hx Family Cardiac Disorders: Yes Hx Family Respiratory Disorders: No Hx Family Cancer: No Hx Family Endocrine Disorder: Yes Medications and Allergies Lisinopril 1.25 mg PO DAILY 05/31/18 [History] Nystatin POWDER [Nystop] 1 appl TP TID PRN 05/31/18 [History] Tamsulosin [Flomax] 0.4 mg PO DAILY 05/31/18 [History] Oxybutynin Chloride [Ditropan XL] 5 mg PO DAILY 06/01/18 [History] Pregabalin [Lyrica] 150 mg PO BID 06/02/18 [History] Albuterol Sulfate [Proventil Inhaler] 2 puff IH [id number] PRN inhaler 06/05/18 [Rx] Gabapentin [Neurontin] 600 mg PO TID 11/15/18 [History] Warfarin Sodium 3 mg PO DAILY 11/16/18 [History] Allergy/AdvReac Type Severity Reaction Status Date / Time No Known Allergies Allergy Verified 06/01/18 16:44 Results - Labs Result Diagrams: 11/17/18 07:15 07/12/19 07:15 Labs: Abnormal lab results WBC 12.7 K/mcL (4.3-11.1) H D 11/17/18 07:15 Hgb 11.2 g/dL (12.9-16.9) L 11/17/18 07:15 Hct 37.4 % (37.5-50.1) L 11/17/18 07:15 MCV 77.0 fL (83.0-100.0) L 11/17/18 07:15 MCH 23.0 pg (28.0-33.3) L 11/17/18 07:15 MCHC 29.9 g/dL (31.6-35.5) L 11/17/18 07:15 RDW 14.6 % (11.5-14.5) H 11/16/18 06:29 MPV 9.2 fL (9.4-12.4) L 11/17/18 07:15 Neutrophils # 10.7 K/mcL (1.6-8.9) H 11/17/18 07:15 PT 15.6 Seconds (9.4-12.1) H 11/17/18 07:15 BUN 24 mg/dL (8-23) H 11/17/18 07:15 Glucose 230 mg/dL (70-105) H 11/17/18 07:15 Nasal Screen MRSA (PCR) Positive (Negative) A 11/16/18 09:30 H & H 11/17/18 Range/Units 07:15 Hgb 11.2 L (12.9-16.9) g/dL Hct 37.4 L (37.5-50.1) % All other labs normal. Consult Discharge Plan - Plan Referrals: Helga Ross, SINTER FEEDER [Primary Care Provider] -
--- NOTE | 2018-11-17 18:36 | Anesthesia Evaluation PreOp ---
Date of Encounter: 11/18/18 Time of Encounter: 18:58 - Past History Planned Operation: T10-12 Laminectomy Cardiac History: CHF Pulmonary History: COPD, TEETEE Dx (Dx but does not have/comply with CPAP) WELFARE ADVISER History: Other (wheelchair bound with increasing LE pain/weakness. Neurogenic bladder) Other Medical History: Renal (CKDz - Hx of dialysis x 6 months in 1999) Anesthesia History: No Prior Anesthetic Complications, Past Anesthesia (Multiple spine & orthopedic surgeries. Colectomy/Colostomy) Alcohol Use: none Drug use: marijuana (medical marijuana user) Medications and Allergies Lisinopril 1.25 mg PO DAILY 05/31/18 [History] Nystatin POWDER [Nystop] 1 appl TP TID PRN 05/31/18 [History] Tamsulosin [Flomax] 0.4 mg PO DAILY 05/31/18 [History] Oxybutynin Chloride [Ditropan XL] 5 mg PO DAILY 06/01/18 [History] Pregabalin [Lyrica] 150 mg PO BID 06/02/18 [History] Albuterol Sulfate [Proventil Inhaler] 2 puff IH [id number] PRN inhaler 06/05/18 [Rx] Gabapentin [Neurontin] 600 mg PO TID 11/15/18 [History] Warfarin Sodium 3 mg PO DAILY 11/16/18 [History] Allergy/AdvReac Type Severity Reaction Status Date / Time No Known Allergies Allergy Verified 06/01/18 16:44 - Meds/Allergy Pre-op Review Medications Reviewed: Yes Allergies Reviewed: Yes Beta Blockers on Current Med List: No Anesthesia Results - Labs 11/17/18 07:15 11/17/18 07:15 Laboratory Tests 11/16/18 11/17/18 09:30 07:15 Est GFR (Non-Af Amer) > 60 Nasal Screen MRSA (PCR) Positive A Impressions Hip X-Ray 11/16/18 17:02 IMPRESSION: 1. No acute fracture of the left hip identified; however, evaluation is technically limited by patient positioning. Chronic appearing deformity has been stable since 05/31/2018. 2. Severe left hip osteoarthritis. 3. Moderate right hip osteoarthritis. D/ / 11/16/2018 20:33:32 Hien Jackson MD / earnold Interpreting Provider: Hien Jackson MD Lumbar Spine MRI 11/16/18 20:40 IMPRESSION: 1. Postsurgical change from posterior fusion involving L3 through S1. 2. Severe spinal canal stenosis is seen at T11-T12. Consider further evaluation with dedicated MRI of the thoracic spine. 3. Moderate to severe spinal canal stenosis at L1-L2 and L2-L3 with moderate stenosis at L3-L4 and L4-L5. 4. Additional degenerative changes of the lumbar spine as above. D/ / Daniel Munoz MD / Daniel Munoz MD Interpreting Provider: Daniel Munoz MD Thoracic Spine MRI 11/17/18 15:53 IMPRESSION: Severe central canal stenosis at T10-11 and T11-12. Mild central canal stenosis at T7-8, T8-9, and T9-10. Small disc protrusions at T4-5 and T5-6. T12 laminectomy. D/ / 11/17/2018 13:18:42 Cj Campuzano MD / bucky Interpreting Provider: Cj Campuzano MD Anesthesia Exam Vital Signs Temp Pulse Resp BP Pulse Ox 11/17/18 15:37 97.9 F 69 16 148/78 92 11/17/18 10:55 97.9 F 77 16 140/77 93 11/17/18 07:18 97.9 F 84 16 164/81 95 11/17/18 06:15 97.3 F L 15 134/73 11/17/18 03:11 97.8 F 82 15 134/73 11/17/18 02:56 97.5 F L 82 16 133/73 93 11/17/18 01:38 97.8 F 80 16 164/73 11/16/18 23:20 97.9 F 84 16 136/72 93 11/16/18 23:02 97.9 F 81 16 146/76 92 11/16/18 22:47 97.9 F 92 14 148/62 91 11/16/18 19:48 97.9 F 73 16 127/73 92 Intake and Output 11/17/18 11/17/18 11/17/18 07:59 15:59 23:59 Intake Total 1051 / 1561 510 / 1561 Output Total 900 / 1700 800 / 1700 Balance 151 / -139 -290 / -139 Intake: IV Fluids 551 / 1061 510 / 1061 Rocephin 1,000 MG In Water for inj. (sterile) 10 ML @ 600 mls/ hr IVP DAILY [facility] Rx#:[id number] AquaMephyton 10 MG In 0.9 % 51 / 51 Sodium Chloride 50 ML @ 100 mls /hr IVPB ONCE ONE Rx#: [id number] Vancocin 2,000 MG In 0.9 % 500 / 1000 500 / 1000 Sodium Chloride 500 ML @ 250 mls/hr IVPB Q12H [facility] Rx#: [id number] Blood Product 500 / 500 Plasma Unit [id number] 250 / 250 Plasma Unit [id number] 250 / 250 Output: Urine 800 / 800 Catheter 900 / 900 Other: Stool Size Moderate Stool Consistency formed Stool Characteristics Normal for Patient Stool Color Brown # Bowel Movements 1 Height: 6'2" Weight: 367# BMI = 47.2 NPO (# of Hours): MNOc - HEENT Pupil (Motor): Pupils equal, EOMI Mallampati: II Teeth: Normal, Edentulous ( except for 1 single lower tooth) Oral Opening: Greater than 3 - WELFARE ADVISER LOC: Oriented WELFARE ADVISER Motor: Normal RUE, Normal LUE, Normal RLE, Normal LLE, Normal Face WELFARE ADVISER Sensory: Normal: RUE, LUE, RLE, LLE, Face - Cardiac Rhythm: Regular Murmur: None - Pulmonary Breath Sounds: bilateral Clear Respiratory Effort: Symmetrical Anesthesia Assess/Plan ASA Score: 4 (MO, COPD, CHF, CKD, failed back syndrome, TEETEE) Level of consciousness: Cooperative, Oriented, Tranquil Anesthetic Plan: General Autologous Blood: Yes Recovery Plan: PACU Anes Supervising Prov Stmt: Pt seen/evaluated, r&B Discussed, questions answered and consent obtained. Antonio Starkey MD
[2018-11-17] MEDS ORDERED: *HR* Succinylcholine 200 MG/10 ML VIAL IVP ONE (19:22)
[2018-11-17] MEDS ORDERED: *HR* Phenylephrine 10 MG/ML VIAL ONE (19:22)
[2018-11-17] MEDS ORDERED: *HR* Propofol 200 MG/20 ML VIAL IVP ONE ×2 (19:22→22:40)
[2018-11-17] MEDS ORDERED: Lidocaine -MPF 2% 2 ML VIAL ONE (19:22)
[2018-11-17] MEDS ORDERED: *HR* Remifentanil 1 MG VIAL IVP ONE (19:22)
[2018-11-17] MEDS ORDERED: *HR* FentaNYL (PF) 100 MCG/2 ML VIAL ONE (22:41)
[2018-11-17] MEDS ORDERED: Acetaminophen IV 1,000 MG/100 ML INFUS..BTL ONE (22:41)
[2018-11-17] MEDS ORDERED: Famotidine 20 MG/2 ML VIAL ONE (22:41)
[2018-11-17] MEDS ORDERED: Lidocaine -MPF 4% 5 ML AMPUL ONE (22:42)
[2018-11-17] MEDS ORDERED: Lacri-Lube 3.5 GM TUBE ONE (22:46)
[2018-11-17] MEDS ORDERED: Pregabalin 75 MG CAPSULE ONE (22:53)
[2018-11-17] MEDS ORDERED: *HR* Magnesium Sulfate 1 GM/2 ML VIAL ONE (23:21)
[2018-11-17] MEDS ORDERED: EPHEDrine 50 MG/ML VIAL ONE (23:56)
[2018-11-17] MEDS ORDERED: *HR* PHENYLEPHRINE 1,000 MCG/10 ML SYRINGE IVP ONE (23:56)
[2018-11-18] MEDS ORDERED: *HR* FentaNYL (PF) 100 MCG/2 ML VIAL ONE (00:30)
[2018-11-18] MEDS ORDERED: *HR* HYDROMORPHONE 2 MG/ML VIAL ONE (01:16)
[2018-11-18] MEDS ORDERED: Dexamethasone 4 MG/ML VIAL ONE ×2 (02:03→02:11)
[2018-11-18] MEDS ORDERED: Ondansetron 4 MG/2 ML VIAL ONE (02:03)
--- NOTE | 2018-11-18 02:31 | Orthopedic Operative Note ---
Date of procedure: 11/18/18 Pre-op diagnosis: Thoracic stenosis, bilateral leg weakness Post-op diagnosis: same Operation/Findings: Laminectomy T10-T12: The patient was brought to the operative theater where he underwent general endotracheal anesthesia. He was given antibiotics prior to the start of the procedure. Compression boots and stockings were used for deep vein thrombosis prophylaxis. The patient was placed prone on a Beau table. The back was prepped and draped in the usual sterile fashion. An incision was marked and centered over the T10-T12 interspaces in the midline. We used Bovie cautery to make an incision and then this incision was deepened through the jennifer mbar fascia. Bovie cautery and Lala elevators were used to reflect the paraspinal musculature to the lateral extent of the T10-11 and T11-12 facet joints bilaterally. Belem clamps were placed over the spinous processes of T11 and T12 and an intraoperative lateral fluorograph was obtained. A discusssion was held between the radiologist and surgeon who both confirmed we were at the correct operative level. We then removed the supraspinous and interspinous ligaments between T11 and T12 and subsequently removed the ligamentum flavum from its origin on the distal undersurface of the T11 lamina. The ligamentum flavum was noted to be quite hypertrophied and there was significant scar tissue from a previous surgical procedure. We performed a laminectomy of T11 including undercutting of the T11-T12 facets to decompress the lateral recesses. We moved proximally and remove supraspinous and interspinous ligaments at T11, undercut the facets at T10-11, and did a T10 laminectomy. After the decompression was complete the previously compressed spinal cord was seen to expand nicely. We documented the extent of the decompression without lateral fluorograph spanning T10-T12 and then we copiously irrigated the wound and then closed the wound in layers with 1 Vicryl for the fascia, 2-0 Vicryl for the subcutaneous tissue, and Dermabond was used for skin closure. Sterile dressings were placed over the wound, the patient was turned supine in a hospital bed, and was extubated in the operative theater. All sponge needles and instrument counts were correct at the end of the procedure. The patient tolerated the procedure well without complications. Anesthesia: GETA Surgeon: Maksim Mercado Jr Was there an stores assistant present: No Estimated blood loss (cc): 20 Specimen: None Condition: stable Disposition: PACU
[2018-11-18] MEDS: Gabapentin 300 MG CAPSULE PO SCH ×3 (03:01→20:53)
[2018-11-18] MEDS: Nystatin POWDER 30 GM BOTTLE TP SCH (03:01)
[2018-11-18] MEDS: methylPREDNISolone 125 MG/2 ML VIAL IVP SCH (03:02)
--- NOTE | 2018-11-18 03:13 | Anesthesia Evaluation Post Op ---
Date of Encounter: 11/18/18 Time of Encounter: 03:10 - Vital Signs Vital Signs: Vital Signs Temp Pulse Resp BP Pulse Ox 11/18/18 03:06 89 15 114/64 96 11/18/18 02:56 87 14 117/60 93 11/18/18 02:46 97.3 F L 87 16 122/71 98 11/17/18 15:37 97.9 F 69 16 148/78 92 11/17/18 10:55 97.9 F 77 16 140/77 93 11/17/18 07:18 97.9 F 84 16 164/81 95 11/17/18 06:15 97.3 F L 15 134/73 11/17/18 03:11 97.8 F 82 15 134/73 Intake and Output 11/17/18 11/17/18 11/18/18 15:59 23:59 07:59 Intake Total 510 / 1811 250 / 1811 Output Total 800 / 1700 325 / 325 Balance -290 / 111 250 / 111 -325 / -325 Intake: IV Fluids 510 / 1311 250 / 1311 Rocephin 1,000 MG In Water for inj. (sterile) 10 ML @ 600 mls/ hr IVP DAILY [facility] Rx#:[id number] Vancocin 1,500 MG In 0.9 % 250 / 250 Sodium Chloride 250 ML @ 166.67 mls/hr IVPB Q12H [facility] Rx#: [id number] Vancocin 2,000 MG In 0.9 % 500 / 1000 Sodium Chloride 500 ML @ 250 mls/hr IVPB Q12H [facility] Rx#: [id number] Output: Urine 800 / 800 Estimated Blood Loss 25 / 25 Urine Amount (Catheter) 300 / 300 Other: Stool Size Moderate Stool Consistency formed Stool Characteristics Normal for Patient Stool Color Brown # Bowel Movements 1 - Lungs Lungs: Clear Ascult./Percussion - Airway Airway: Non-obstructed - Cardiovascular Baseline Rhythm - Mental Status Mental Status: Alert & Oriented, Answers Appropriately - Pain Pain Scale used: Numeric (1 - 10) - Nausea Vomiting Nausea Vomiting: Not Present - Hydration Hydration: Ice chips, Reinoso catheter - Discharge PostOp Status: Transfer Patient to floor Anes Supervising Prov Stmt: Pt seen/evlauated, VSS and has met criteria for discharge to floor.
[2018-11-18] MEDS ORDERED: Acetaminophen 325 MG TABLET PO PRN (03:44)
[2018-11-18] MEDS ORDERED: Naloxone 0.4 MG/ML INJ IVP PRN (03:44)
[2018-11-18] MEDS ORDERED: Ringers Solution, Lactated 1,000 ML IVC SCH (03:44)
[2018-11-18] MEDS: *HR* OxyCODONE Immed Rel 5 MG TABLET PO PRN ×4 (03:58→20:53)
[2018-11-18] MEDS: *HR* HYDROcodone/Acet 5/325 mg TABLET PO PRN (05:51)
--- NOTE | 2018-11-18 09:51 | Internal Med Progress Note ---
Hospitalist Progress Note - Encounter Date of Encounter: 11/18/18 Time of Encounter: 09:49 - Subjective Interval History: Patient seen and examined in the room. Had a T10-T12 laminectomy yesterday, reported improved strength of bilateral legs, improved sensation deficit. Overnight, patient has no fever, chills, or night sweats. - Exam Vitals: Temp Pulse Resp BP Pulse Ox 97.6 F 79 14 141/70 100 11/18/18 08:10 11/18/18 08:10 11/18/18 08:10 11/18/18 08:10 11/18/18 08:10 Exam: Gen.: Vitals noted. No acute distress. AAOx3, resting comfortably in bed. Morbidly obese. HEENT: PERRL/EOMI, oropharynx clear, Normocephalic, atraumatic, MMM Cardiac: RRR, no murmur, +S1/S2, 2+ BLE edema to mid calf Pulmonary: CTA bilaterally, no wheezes, rales or rhonchi, equal chest expansion, unlabored breathing Abdomen: soft, nontender, BS noted, no guarding, no palpable HSM. Colostomy in place, vental hernia Skin: warm and dry, no visible lesions. MSK: ROM passively intact but painful, no joint swelling noted, gait no assessed while in bed. Muscle strength 1/5 in bilateral LE. Reflexes unable to be elicited. Neuro: A&Ox3, muscle strength 3/5 on both legs but improved from 2/5 prior to surgery. Psych: Appropriate mood and behavior, AOx3 - Assessment and Plan (1) Thoracic stenosis Current Visit: Yes Status: Chronic Assessment and Plan: 73-year-old male with history of psoriatic and a lumbar stenosis presented with acute onset of bilateral leg weakness and a decreased sensation behind the legs. MRI showed severe spinal stenosis on T10-T12. He underwent thoracic spine laminectomy of the T10-T12 on 11/17. Currently doing well, reported improved strength and sensation on both legs. Spine surgery following, appreciate help. (2) Weakness Current Visit: Yes Status: Acute Assessment and Plan: 11/16 73-year-old male presented with acute onset of bilateral leg weakness accompanied by numbness. He has history of chronic back pain and back surgery, has baseline bilateral leg weakness and on wheelchair, but his baseline is that he was able to lift up both legs and put on socks, however, he cannot perform these for a week. Acute cord compression was suspected by neurology, IV steroids were started. Pending lumbar MRI. Neurology on board, appreciate help. 11/17 Lumbar spine MRI showed severe spinal stenosis at the T11-T12. Spinal surgery was consulted, thoracic spine MRI ordered. Continue IV steroids. INR 2.1 yesterday received vitamin K and FFP overnight, current INR 1.4. Neuro and orthopedics on board, appreciate help. 11/18 Status post T10-T12 spine laminectomy, patient reported improved weakness and sensation deficit. Orthopedics following, appreciate help. (3) Morbid obesity Current Visit: No Status: Chronic Assessment and Plan: Weight control discussed with patient. (4) Hx of deep venous thrombosis Current Visit: No Status: Chronic Assessment and Plan: Coumadin on hold because of spine surgery, we will resume once okay with orthope dics. (5) Degenerative disc disease Current Visit: No Status: Chronic Assessment and Plan: Continue pain control, management as above. (6) UTI (urinary tract infection) Current Visit: Yes Status: Acute Assessment and Plan: Patient has no urinary symptoms, received 2 days IV Rocephin and a one day IV vancomycin. Antibiotics discontinued, pending urine culture. (7) DVT prophylaxis Current Visit: Yes Status: Acute Assessment and Plan: SCDs, Coumadin on hold due to upcoming surgery. We will add heparin subcutaneous today. (8) Lumbar spinal stenosis Current Visit: No Status: Chronic Assessment and Plan: Stable. - Time Spent with Patient Total time spent is greater than 50% in coordination of care (as documented) at patient's floor/unit and/or counseling patient: Greater than 35 minutes Plan of Care Discussed with: patient Internal Medicine: Result - Labs CBC & Chem 7: 11/17/18 07:15 11/17/18 07:15 - ABG Interpretation ABG results: PT/INR, D-dimer PT 15.6 Seconds (9.4-12.1) H 11/17/18 07:15 - Impressions Impressions Thoracic Spine MRI 11/17/18 15:53 IMPRESSION: Severe central canal stenosis at T10-11 and T11-12. Mild central canal stenosis at T7-8, T8-9, and T9-10. Small disc protrusions at T4-5 and T5-6. T12 laminectomy. D/ / 11/17/2018 13:18:42 Cj Campuzano MD / bucky Interpreting Provider: Cj Campuzano MD Fluoroscopy 11/17/18 23:50 IMPRESSION: Intraoperative fluoroscopy for procedural guidance. D/ / Ray Hilario MD / Ray Hilario MD Interpreting Provider: Ray Hilario MD Consult Discharge Plan - Plan Referrals: Evelyn Hanley, PAC [Physician Headend Technician] - 12/05/18 10:15 am (POW#2 Lami T10- T12 11/17/18) Helga Ross, DEVELOPMENT COORDINATOR [Primary Care Provider] - (5) Degenerative disc disease Qualifiers: Spinal region: lumbar Qualified Code(s): M51.36 - Other intervertebral disc degeneration, lumbar region (6) UTI (urinary tract infection) Qualifiers: Urinary tract infection type: acute cystitis Hematuria presence: without hematuria Qualified Code(s): N30.00 - Acute cystitis without hematuria (8) Lumbar spinal stenosis Qualifiers: Neurogenic claudication status: without neurogenic claudication Qualified Code(s): M48.061 - Spinal stenosis, lumbar region without neurogenic claudication
[2018-11-18] MEDS: cephALEXin 500 MG CAPSULE PO SCH ×2 (16:12→20:53)
[2018-11-18] MEDS: *HR* Heparin 5,000 UNIT/ML VIAL SQ SCH (16:38)
[2018-11-19] MEDS: *HR* HYDROcodone/Acet 5/325 mg TABLET PO PRN ×2 (02:50→09:50)
[2018-11-19] MEDS: *HR* OxyCODONE Immed Rel 5 MG TABLET PO PRN ×4 (04:21→20:41)
[2018-11-19 04:43] LABS: Basophils % 0.2 %; Eosinophils % 0.2 %; Hematocrit 35.7 % (37.5-50.1); Hemoglobin 10.5 g/dL (12.9-16.9); Immature Granulocytes % 1.3 % (0-4); Lymphocytes # 2.1 K/mcL (0.6-4.6); Lymphocytes % 16.9 %; Mean Corpuscular HGB Conc 29.4 g/dL (31.6-35.5); Mean Corpuscular Hemoglobin 23.1 pg (28.0-33.3); Mean Corpuscular Volume 78.6 fL (83.0-100.0); Monocytes # 1.2 K/mcL (0.0-1.3); Monocytes % 9.7 %; Neutrophils # 8.8 K/mcL (1.6-8.9); Platelet Count 235 K/mcL (140-400); Red Blood Count 4.54 M/mcL (4.19-5.50); Red Cell Distribution Width 14.6 % (11.5-14.5); Segmented Neutrophils % 71.7 %; White Blood Count 12.3 K/mcL (4.3-11.1)
[2018-11-19 04:47] LABS: INR 1.2; Prothrombin Time 13.2 Seconds (9.4-12.1)
[2018-11-19 04:57] LABS: BUN/Creatinine Ratio 22 (6-26); Blood Urea Nitrogen 22 mg/dL (8-23); Carbon Dioxide 28 mEq/L (23-29); Chloride 102 mEq/L (98-107); Glucose 145 mg/dL (70-105); Osmolality,Calculated 286 (280-300); Sodium 135 mEq/L (136-145); eGFR For African Americans > 60 (> 60); eGFR For Non-African Americans > 60 (> 60)
[2018-11-19] MEDS: *HR* Heparin 5,000 UNIT/ML VIAL SQ SCH ×2 (06:14→17:05)
[2018-11-19] MEDS: cephALEXin 500 MG CAPSULE PO SCH ×4 (09:50→20:40)
[2018-11-19] MEDS: Gabapentin 300 MG CAPSULE PO SCH ×3 (10:02→20:40)
--- NOTE | 2018-11-19 11:05 | Internal Med Progress Note ---
Hospitalist Progress Note - Encounter Date of Encounter: 11/19/18 Time of Encounter: 11:00 - Subjective Interval History: Mr. Perez is a 73 year old male with a PMHx of COPD, CHF, CKD, chronic back pain s/p back surgery who presented to [facility] ED with a complaint of increased LE weakness. He is normally wheelchair bound at home due to chronic degerative disc disease for the past 10 years. He states that he has noticed some increased difficulty in moving his lower extremities both due to increased pain as well as weakness. He has also noticed increased numbness in the posterior legs extending to the mid hamstrings. He was transferred to this hospital for further evaluation, MRI of spine showed a severe spinal stenosis at T10-T12. Spine surgery was consulted, patient underwent T10-T12 spinal laminectomy on 11/17. Patient weakness and numbness of legs have slightly improved. Patient seen and examined in the room. He is sitting on the bedside. He reported he can move legs much more than 2 days ago. He had a recorded low blood pressure this morning, but he denies lightheadedness, shortness breath, chest pain, or palpitation. Overnight, he denies fever, chills, or night sweats. - Exam Vitals: Temp Pulse Resp BP Pulse Ox 98.0 F 81 16 107/63 93 11/19/18 07:25 11/19/18 07:25 11/19/18 07:25 11/19/18 09:48 11/19/18 07:25 Exam: Gen.: Vitals noted. No acute distress. AAOx3, resting comfortably in bed. Morbidly obese. HEENT: PERRL/EOMI, oropharynx clear, Normocephalic, atraumatic, MMM Cardiac: RRR, no murmur, +S1/S2, 2+ BLE edema to mid calf Pulmonary: CTA bilaterally, no wheezes, rales or rhonchi, equal chest expansion, unlabored breathing Abdomen: soft, nontender, BS noted, no guarding, no palpable HSM. Colostomy in place, vental hernia Skin: warm and dry, no visible lesions. MSK: ROM passively intact but painful, no joint swelling noted, gait no assessed while in bed. Muscle strength 1/5 in bilateral LE. Reflexes unable to be e licited. Neuro: A&Ox3, muscle strength 3/5 on both legs but improved from 2/5 prior to surgery. Psych: Appropriate mood and behavior, AOx3 - Assessment and Plan (1) Weakness Current Visit: Yes Status: Acute Assessment and Plan: 11/16 73-year-old male presented with acute onset of bilateral leg weakness accompanied by numbness. He has history of chronic back pain and back surgery, has baseline bilateral leg weakness and on wheelchair, but his baseline is that he was able to lift up both legs and put on socks, however, he cannot perform these for a week. Acute cord compression was suspected by neurology, IV steroids were started. Pending lumbar MRI. Neurology on board, appreciate help. 11/17 Lumbar spine MRI showed severe spinal stenosis at the T11-T12. Spinal surgery was consulted, thoracic spine MRI ordered. Continue IV steroids. INR 2.1 yesterday received vitamin K and FFP overnight, current INR 1.4. Neuro and orthopedics on board, appreciate help. 11/18 Status post T10-T12 spine laminectomy, patient reported improved weakness and sensation deficit. Orthopedics following, appreciate help. 11/19 Doing well. Anticipate dc to inpt rehab/swing bed next week. (2) Thoracic stenosis Current Visit: Yes Status: Chronic Assessment and Plan: 73-year-old male with history of psoriatic and a lumbar stenosis presented with acute onset of bilateral leg weakness and a decreased sensation behind the legs. MRI showed severe spinal stenosis on T10-T12. He underwent thoracic spine laminectomy of the T10-T12 on 11/17. Currently doing well, reported improved strength and sensation on both legs. Spine surgery following, appreciate help. (3) Morbid obesity Current Visit: No Status: Chronic Assessment and Plan: Weight control discussed with patient. (4) Hx of deep venous thrombosis Current Visit: No Status: Chronic Assessment and Plan: Coumadin on hold because of spine surgery, we will resume once okay with orthopedics. (5) Degenerative disc disease Current Visit: No Status: Chronic Assessment and Plan: Continue pain control, management as above. (6) UTI (urinary tract infection) Current Visit: Yes Status: Acute Assessment and Plan: Patient has no urinary symptoms, received 2 days IV Rocephin and a one day IV vancomycin. Urine culture resulted received 11/18 from Paul, grew E. coli, sensitive to Keflex. IV abx changed to oral Kefelx 11/18, will complete 7 day course. (7) Lumbar spinal stenosis Current Visit: No Status: Chronic Assessment and Plan: Stable. (8) DVT prophylaxis Current Visit: Yes Status: Acute Assessment and Plan: SCDs, Coumadin on hold due to upcoming surgery. on heparin subcutaneous. - Time Spent with Patient Total time spent is greater than 50% in coordination of care (as documented) at patient's floor/unit and/or counseling patient: Greater than 35 minutes Plan of Care Discussed with: patient Internal Medicine: Result - Labs CBC & Chem 7: 11/19/18 04:06 11/19/18 04:06 Labs: Short CBC 11/19/18 Range/Units 04:06 WBC 12.3 H (4.3-11.1) K/mcL Hgb 10.5 L (12.9-16.9) g/dL Hct 35.7 L (37.5-50.1) % Plt Count 235 (140-400) K/mcL Neutrophils # 8.8 (1.6-8.9) K/mcL BMP 11/19/18 04:06 Sodium 135 L Potassium 4.0 Chloride 102 Carbon Dioxide 28 BUN 22 Creatinine 1.02 Glucose 145 H Calcium 8.0 L - ABG Interpretation ABG results: PT/INR, D-dimer PT 13.2 Seconds (9.4-12.1) H 11/19/18 04:06 Consult Discharge Plan - Plan Referrals: Evelyn Hanley, PAC [Physician Quarter Lining Smoother] - 12/05/18 10:15 am (POW#2 [facility] T10- T12 11/17/18) Helga Ross, DRAFTER CARTOGRAPHIC [Primary Care Provider] - (Please call Tuesday to schedule hospital follow up appointment for 7-10 days from date of discharge. ) (5) Degenerative disc disease Qualifiers: Spinal region: lumbar Qualified Code(s): M51.36 - Other intervertebral disc degeneration, lumbar region (6) UTI (urinary tract infection) Qualifiers: Urinary tract infection type: acute cystitis Hematuria presence: without hematuria Qualified Code(s): N30.00 - Acute cystitis without hematuria (7) Lumbar spinal stenosis Qualifiers: Neurogenic claudication status: without neurogenic claudication Qualified Code(s): M48.061 - Spinal stenosis, lumbar region without neurogenic claudication
--- NOTE | 2018-11-19 20:35 | Spine Progress Note ---
Date of Encounter: 11/19/18 Time of Encounter: 20:32 - Assessment and Plan (1) Thoracic stenosis Current Visit: Yes Status: Chronic (2) Bilateral leg weakness Current Visit: Yes Status: Acute Subjective Principal diagnosis: spinal stenosis Interval history: The patient is without complaints. He says he has much more feeling in his legs. He said he is able to fire his legs muscles more in comparison to preoper atively. Afebrile vital signs are stable. Dressing is clean dry and intact. No significant change in neuro exam he is able to fire all lower extremity motor groups but he is weak.. Assessment :stable. Plan mobilize ,continue analgesics, discharge planning. Will likely need rehabilitation facility. Objective Vital signs: Vital Signs Temp Pulse Resp BP Pulse Ox 11/19/18 18:49 97.9 F 76 16 98/57 94 11/19/18 15:25 97.9 F 76 16 101/64 95 11/19/18 11:12 97.2 F L 83 16 96/64 94 11/19/18 09:48 107/63 11/19/18 07:25 98.0 F 81 16 89/51 93 11/19/18 02:58 98.1 F 75 14 112/78 96 11/18/18 23:09 98.8 F 76 18 95/59 92 Intake and Output 11/19/18 11/19/18 11/19/18 07:59 15:59 23:59 Intake Total 1240 / 1600 360 / 1600 Output Total 1000 / 1950 950 / 1950 Balance -1000 / -350 1240 / -350 -590 / -350 Intake: IV Fluids 1000 / 1000 Lactated Ringers 1,000 ML @ 100 1000 / 1000 mls/hr IVC .Q10H DEIRDRE Rx#: [id number] Oral 240 / 600 360 / 600 Output: Catheter 1000 / 1950 950 / 1950 Other: Meal Breakfast Dinner Percent of Meal Consumed 100% 100% Stool Size Large Stool Consistency soft Stool Color Brown # Bowel Movements 1 Weight 167.8 kg Patient Weight 11/19/18 23:59 Weight 167.8 kg - Labs CBC & BMP: 11/19/18 04:06 11/19/18 04:06 Labs: Abnormal lab results WBC 12.3 K/mcL (4.3-11.1) H 11/19/18 04:06 Hgb 10.5 g/dL (12.9-16.9) L 11/19/18 04:06 Hct 35.7 % (37.5-50.1) L 11/19/18 04:06 MCV 78.6 fL (83.0-100.0) L 11/19/18 04:06 MCH 23.1 pg (28.0-33.3) L 11/19/18 04:06 MCHC 29.4 g/dL (31.6-35.5) L 11/19/18 04:06 RDW 14.6 % (11.5-14.5) H 11/19/18 04:06 MPV 9.0 fL (9.4-12.4) L 11/19/18 04:06 Neutrophils # 10.7 K/mcL (1.6-8.9) H 11/17/18 07:15 PT 13.2 Seconds (9.4-12.1) H 11/19/18 04:06 Sodium 135 mEq/L (136-145) L 11/19/18 04:06 BUN 24 mg/dL (8-23) H 11/17/18 07:15 Glucose 145 mg/dL (70-105) H 11/19/18 04:06 Calcium 8.0 mg/dL (8.6-10.3) L 11/19/18 04:06 Nasal Screen MRSA (PCR) Positive (Negative) A 11/16/18 09:30 Consult Discharge Plan - Plan Referrals: Evelyn Hanley, PAC [Physician Boiler/Chiller Operator] - 12/05/18 10:15 am (POW#2 [facility] T10- T12 11/17/18) Helga Ross, THAW SHED HEATER TENDER [Primary Care Provider] - (Please call Tuesday to schedule hospital follow up appointment for 7-10 days from date of discharge. )
[2018-11-20] MEDS: *HR* OxyCODONE Immed Rel 5 MG TABLET PO PRN ×5 (02:16→20:32)
[2018-11-20 05:11] LABS: Basophils % 0.2 %; Eosinophils # 0.3 K/mcL (0.0-0.6); Eosinophils % 2.3 %; Hematocrit 38.8 % (37.5-50.1); Hemoglobin 11.5 g/dL (12.9-16.9); Immature Granulocytes % 1.6 % (0-4); Lymphocytes # 2.9 K/mcL (0.6-4.6); Lymphocytes % 25.4 %; Mean Corpuscular HGB Conc 29.6 g/dL (31.6-35.5); Mean Corpuscular Hemoglobin 23.3 pg (28.0-33.3); Mean Corpuscular Volume 78.7 fL (83.0-100.0); Mean Platelet Volume 9.1 fL (9.4-12.4); Monocytes % 9.2 %; Neutrophils # 6.9 K/mcL (1.6-8.9); Platelet Count 224 K/mcL (140-400); Red Blood Count 4.93 M/mcL (4.19-5.50); Red Cell Distribution Width 14.8 % (11.5-14.5); Segmented Neutrophils % 61.3 %; White Blood Count 11.3 K/mcL (4.3-11.1)
[2018-11-20 05:29] LABS: BUN/Creatinine Ratio 23 (6-26); Blood Urea Nitrogen 23 mg/dL (8-23); Calcium 8.2 mg/dL (8.6-10.3); Carbon Dioxide 28 mEq/L (23-29); Chloride 99 mEq/L (98-107); Glucose 148 mg/dL (70-105); Osmolality,Calculated 284 (280-300); Potassium 4.1 mEq/L (3.5-5.1); Sodium 134 mEq/L (136-145); eGFR For African Americans > 60 (> 60); eGFR For Non-African Americans > 60 (> 60)
[2018-11-20] MEDS: *HR* Heparin 5,000 UNIT/ML VIAL SQ SCH ×2 (06:14→16:34)
[2018-11-20] MEDS: *HR* HYDROcodone/Acet 5/325 mg TABLET PO PRN (09:54)
[2018-11-20] MEDS: cephALEXin 500 MG CAPSULE PO SCH ×3 (09:54→20:33)
[2018-11-20] MEDS: Gabapentin 300 MG CAPSULE PO SCH ×3 (09:55→20:33)
--- NOTE | 2018-11-20 13:09 | Internal Med Progress Note ---
Hospitalist Progress Note - Encounter Date of Encounter: 11/20/18 Time of Encounter: 13:07 - Subjective Interval History: Mr. Perez is a 73 year old male with a PMHx of COPD, CHF, CKD, chronic back pain s/p back surgery who presented to [facility] ED with a complaint of increased LE weakness. He is normally wheelchair bound at home due to chronic degerative disc disease for the past 10 years. He states that he has noticed some increased difficulty in moving his lower extremities both due to increased pain as well as weakness. He has also noticed increased numbness in the posterior legs extending to the mid hamstrings. He was transferred to this hospital for further evaluation, MRI of spine showed a severe spinal stenosis at T10-T12. Spine surgery was consulted, patient underwent T10-T12 spinal laminectomy on 11/17. Patient weakness and numbness of legs have slightly improved. Patient seen and examined in the room. He is sitting on the bedside. He reported he can move legs much more than 2 days ago. he denies lightheadedness, shortness breath, chest pain, or palpitation. Overnight, he denies fever, chills, or night sweats. - Exam Vitals: Temp Pulse Resp BP Pulse Ox 97.9 F 87 14 101/61 96 11/20/18 12:34 11/20/18 12:34 11/20/18 12:34 11/20/18 12:34 11/20/18 12:34 Exam: Gen.: Vitals noted. No acute distress. AAOx3, resting comfortably in bed. Morbidly obese. HEENT: PERRL/EOMI, oropharynx clear, Normocephalic, atraumatic, MMM Cardiac: RRR, no murmur, +S1/S2, 2+ BLE edema to mid calf Pulmonary: CTA bilaterally, no wheezes, rales or rhonchi, equal chest expansion, unlabored breathing Abdomen: soft, nontender, BS noted, no guarding, no palpable HSM. Colostomy in place, vental hernia Skin: warm and dry, no visible lesions. MSK: ROM passively intact but painful, no joint swelling noted, gait no assessed while in bed. Muscle strength 1/5 in bilateral LE. Reflexes unable to be elicited. Neuro: A&Ox3, muscle strength 3/5 on both legs but improved from 2/5 prior to surgery. Psych: Appropriate mood and behavior, AOx3 - Assessment and Plan (1) Weakness Current Visit: Yes Status: Acute Assessment and Plan: 11/16 73-year-old male presented with acute onset of bilateral leg weakness accompanied by numbness. He has history of chronic back pain and back surgery, has baseline bilateral leg weakness and on wheelchair, but his baseline is that he was able to lift up both legs and put on socks, however, he cannot perform these for a week. Acute cord compression was suspected by neurology, IV steroids were started. Pending lumbar MRI. Neurology on board, appreciate help. 11/17 Lumbar spine MRI showed severe spinal stenosis at the T11-T12. Spinal surgery was consulted, thoracic spine MRI ordered. Continue IV steroids. INR 2.1 yesterday received vitamin K and FFP overnight, current INR 1.4. Neuro and orthopedics on board, appreciate help. 11/18 Status post T10-T12 spine laminectomy, patient reported improved weakness and sensation deficit. Orthopedics following, appreciate help. 11/19 Doing well. Anticipate dc to inpt rehab/swing bed next week. 11/20 Doing well, awaiting dc to rehab. (2) Thoracic stenosis Current Visit: Yes Status: Chronic Assessment and Plan: 73-year-old male with history of psoriatic and a lumbar stenosis presented with acute onset of bilateral leg weakness and a decreased sensation behind the legs. MRI showed severe spinal stenosis on T10-T12. He underwent thoracic spine laminectomy of the T10-T12 on 11/17. Currently doing well, reported improved strength and sensation on both legs. Spine surgery following, appreciate help. (3) Morbid obesity Current Visit: No Status: Chronic Assessment and Plan: Weight control discussed with patient. (4) Hx of deep venous thrombosis Current Visit: No Status: Chronic Assessment and Plan: Coumadin on hold because of spine surgery, we will resume once okay with orthopedics. (5) Degenerative disc disease Current Visit: No Status: Chronic Assessment and Plan: Continue pain control, management as above. (6) UTI (urinary tract infection) Current Visit: Yes Status: Acute Assessment and Plan: Patient has no urinary symptoms, received 2 days IV Rocephin and a one day IV vancomycin. Urine culture resulted received 11/18 from Paul, grew E. coli, sensitive to Keflex. IV abx changed to oral Kefelx 11/18, will complete 7 day course. (7) Lumbar spinal stenosis Current Visit: No Status: Chronic Assessment and Plan: Stable. (8) DVT prophylaxis Current Visit: Yes Status: Acute Assessment and Plan: SCDs, Coumadin on hold due to upcoming surgery. on heparin subcutaneous. - Time Spent with Patient Total time spent is greater than 50% in coordination of care (as documented) at patient's floor/unit and/or counseling patient: Greater than 35 minutes Plan of Care Discussed with: patient Internal Medicine: Result - Labs CBC & Chem 7: 11/20/18 04:41 11/20/18 04:41 Labs: Short CBC 11/20/18 Range/Units 04:41 WBC 11.3 H (4.3-11.1) K/mcL Hgb 11.5 L (12.9-16.9) g/dL Hct 38.8 (37.5-50.1) % Plt Count 224 (140-400) K/mcL Neutrophils # 6.9 (1.6-8.9) K/mcL BMP 11/20/18 04:41 Sodium 134 L Potassium 4.1 Chloride 99 Carbon Dioxide 28 BUN 23 Creatinine 1.01 Glucose 148 H Calcium 8.2 L - ABG Interpretation ABG results: PT/INR, D-dimer PT 13.2 Seconds (9.4-12.1) H 11/19/18 04:06 Consult Discharge Plan - Plan Referrals: Evelyn Hanley, PAC [Physician Chief Mechanical Engineer] - 12/05/18 10:15 am (POW#2 [facility] T10- T12 11/17/18) Helga Ross, ENVELOPE MACHINE ADJUSTER [Primary Care Provider] - (Please call Tuesday to schedule hospital follow up appointment for 7-10 days from date of discharge. ) (5) Degenerative disc disease Qualifiers: Spinal region: lumbar Qualified Code(s): M51.36 - Other intervertebral disc degeneration, lumbar region (6) UTI (urinary tract infection) Qualifiers: Urinary tract infection type: acute cystitis Hematuria presence: without hematuria Qualified Code(s): N30.00 - Acute cystitis without hematuria (7) Lumbar spinal stenosis Qualifiers: Neurogenic claudication status: without neurogenic claudication Qualified Code(s): M48.061 - Spinal stenosis, lumbar region without neurogenic claudication
--- NOTE | 2018-11-20 14:57 | Orthopedics Progress Note ---
Date of Encounter: 11/20/18 Time of Encounter: 10:00 - Assessment and Plan (1) Bilateral leg weakness Current Visit: Yes Status: Acute (2) Thoracic stenosis Current Visit: Yes Status: Chronic (3) Status post laminectomy Current Visit: Yes Status: Acute Subjective Principal diagnosis: spinal stenosis Interval history: POD# 2 s/p Laminectomy T10-T12 [Thoracic stenosis, bilateral leg weakness] 11/18/18 The patient is without complaints. He admits his legs have less pain and improved motion though he admits to a long standing history of neuropathy that severely limits his toe motion/sensation. He states he is hoping to go to rehab for his recovery. Vitals and labwork reviewed. Alert and oriented x 3. Patient noted to have brooks boots to b/l heels. No calf tenderness, erythema, warmth. Ankle dorsiflexion intact bilaterally. No toe motion bilaterally noted. Patient reports intact sensation to palpation b/l LE. Continue with mobilization with therapy - no bending, twisting at waist. No lifting greater than 10 lbs. Short, frequent walks. Continue analgesics as needed Discharge planning ongoing via social work Dressing change ordered today - s/w patient's nurse - leave dermabond mesh (Prineo) in place; change gauze and Medipore tape. Dressing changes Q48 hours to keep incision c/d while inpatient. Change more frequently if gets soiled/wet. Contact [facility] with any concerns re: incision care or activity restrictions. Objective Vital signs: Vital Signs Temp Pulse Resp BP Pulse Ox 11/20/18 12:34 97.9 F 87 14 101/61 96 11/20/18 08:14 98.6 F 80 19 106/73 95 11/20/18 03:19 97.7 F 74 16 99/62 94 11/19/18 23:05 97.9 F 73 16 100/62 95 11/19/18 18:49 97.9 F 76 16 98/57 94 11/19/18 15:25 97.9 F 76 16 101/64 95 Intake and Output 11/19/18 11/20/18 11/20/18 23:59 07:59 15:59 Intake Total 360 / 1600 Output Total 1950 / 2950 1000 / 2450 1450 / 2450 Balance -1590 / -1350 -1000 / -2450 -1450 / -2450 Intake: Oral 360 / 600 Output: Catheter 1950 / 2950 1000 / 2450 1450 / 2450 Other: Meal Dinner Percent of Meal Consumed 100% Stool Size Large Stool Consistency soft Stool Color Brown # Bowel Movements 1 Weight 167 kg Patient Weight 11/20/18 23:59 Weight 167 kg - Labs CBC & BMP: 11/20/18 04:41 11/20/18 04:41 Labs: Abnormal lab results WBC 11.3 K/mcL (4.3-11.1) H 11/20/18 04:41 Hgb 11.5 g/dL (12.9-16.9) L 11/20/18 04:41 Hct 35.7 % (37.5-50.1) L 11/19/18 04:06 MCV 78.7 fL (83.0-100.0) L 11/20/18 04:41 MCH 23.3 pg (28.0-33.3) L 11/20/18 04:41 MCHC 29.6 g/dL (31.6-35.5) L 11/20/18 04:41 RDW 14.8 % (11.5-14.5) H 11/20/18 04:41 MPV 9.1 fL (9.4-12.4) L 11/20/18 04:41 Neutrophils # 10.7 K/mcL (1.6-8.9) H 11/17/18 07:15 PT 13.2 Seconds (9.4-12.1) H 11/19/18 04:06 Sodium 134 mEq/L (136-145) L 11/20/18 04:41 BUN 24 mg/dL (8-23) H 11/17/18 07:15 Glucose 148 mg/dL (70-105) H 11/20/18 04:41 Calcium 8.2 mg/dL (8.6-10.3) L 11/20/18 04:41 Nasal Screen MRSA (PCR) Positive (Negative) A 11/16/18 09:30 Consult Discharge Plan - Plan Referrals: Evelyn Hanley, PAC [Physician Flooring Salesperson] - 12/05/18 10:15 am (POW#2 [facility] T10- T12 11/17/18) Helga Ross, ASSISTANT REAL ESTATE MANAGER [Primary Care Provider] - (Please call Tuesday to schedule hospital follow up appointment for 7-10 days from date of discharge. )
[2018-11-21] MEDS: *HR* OxyCODONE Immed Rel 5 MG TABLET PO PRN ×2 (02:46→13:20)
[2018-11-21] MEDS: *HR* Heparin 5,000 UNIT/ML VIAL SQ SCH (05:58)
[2018-11-21 07:27] LABS: Hemoglobin 11.3 g/dL (12.9-16.9); Mean Corpuscular HGB Conc 29.7 g/dL (31.6-35.5); Mean Corpuscular Hemoglobin 22.8 pg (28.0-33.3); Mean Corpuscular Volume 76.6 fL (83.0-100.0); Mean Platelet Volume 9.3 fL (9.4-12.4); Platelet Count 260 K/mcL (140-400); Red Blood Count 4.96 M/mcL (4.19-5.50); White Blood Count 15.2 K/mcL (4.3-11.1)
[2018-11-21 07:46] LABS: BUN/Creatinine Ratio 22 (6-26); Blood Urea Nitrogen 20 mg/dL (8-23); Calcium 8.5 mg/dL (8.6-10.3); Carbon Dioxide 29 mEq/L (23-29); Chloride 96 mEq/L (98-107); Glucose 131 mg/dL (70-105); Osmolality,Calculated 286 (280-300); Potassium 4.3 mEq/L (3.5-5.1); Sodium 136 mEq/L (136-145); eGFR For African Americans > 60 (> 60); eGFR For Non-African Americans > 60 (> 60)
[2018-11-21] MEDS: *HR* HYDROcodone/Acet 5/325 mg TABLET PO PRN (08:32)
[2018-11-21] MEDS: Gabapentin 300 MG CAPSULE PO SCH ×3 (08:33→23:56)
[2018-11-21] MEDS: cephALEXin 500 MG CAPSULE PO SCH ×4 (08:33→23:56)
--- NOTE | 2018-11-21 13:14 | Internal Med Progress Note ---
Hospitalist Progress Note - Encounter Date of Encounter: 11/21/18 Time of Encounter: 13:12 - Subjective Interval History: Mr. Perez is a 73 year old male with a PMHx of COPD, CHF, CKD, chronic back pain s/p back surgery who presented to [facility] ED with a complaint of increased LE weakness. He is normally wheelchair bound at home due to chronic degerative disc disease for the past 10 years. He states that he has noticed some increased difficulty in moving his lower extremities both due to increased pain as well as weakness. He has also noticed increased numbness in the posterior legs extending to the mid hamstrings. He was transferred to this hospital for further evaluation, MRI of spine showed a severe spinal stenosis at T10-T12. Spine surgery was consulted, patient underwent T10-T12 spinal laminectomy on 11/17. Patient weakness and numbness of legs have slightly improved. Patient seen and examined in the room. He is sitting on the bedside. He reported he can move legs much more than prior to surgery he denies lightheadedness, shortness breath, chest pain, or palpitation. Overnight, he denies fever, chills, or night sweats. - Exam Vitals: Temp Pulse Resp BP Pulse Ox 97.7 F 93 16 101/65 97 11/21/18 12:17 11/21/18 12:17 11/21/18 12:17 11/21/18 12:17 11/21/18 12:17 Exam: Gen.: Vitals noted. No acute distress. AAOx3, resting comfortably in bed. Morbidly obese. HEENT: PERRL/EOMI, oropharynx clear, Normocephalic, atraumatic, MMM Cardiac: RRR, no murmur, +S1/S2, 2+ BLE edema to mid calf Pulmonary: CTA bilaterally, no wheezes, rales or rhonchi, equal chest expansion, unlabored breathing Abdomen: soft, nontender, BS noted, no guarding, no palpable HSM. Colostomy in place, vental hernia Skin: warm and dry, no visible lesions. MSK: ROM passively intact but painful, no joint swelling noted, gait no assessed while in bed. Muscle strength 1/5 in bilateral LE. Reflexes unable to be elicited. Neuro: A&Ox3, muscle strength 3/5 on both legs but improved from 2/5 prior to surgery. Psych: Appropriate mood and behavior, AOx3 - Assessment and Plan (1) Weakness Current Visit: Yes Status: Acute Assessment and Plan: 11/16 73-year-old male presented with acute onset of bilateral leg weakness accompanied by numbness. He has history of chronic back pain and back surgery, has baseline bilateral leg weakness and on wheelchair, but his baseline is that he was able to lift up both legs and put on socks, however, he cannot perform these for a week. Acute cord compression was suspected by neurology, IV steroids were started. Pending lumbar MRI. Neurology on board, appreciate help. 11/17 Lumbar spine MRI showed severe spinal stenosis at the T11-T12. Spinal surgery was consulted, thoracic spine MRI ordered. Continue IV steroids. INR 2.1 yesterday received vitamin K and FFP overnight, current INR 1.4. Neuro and orthopedics on board, appreciate help. 11/18 Status post T10-T12 spine laminectomy, patient reported improved weakness and sensation deficit. Orthopedics following, appreciate help. 11/19 Doing well. Anticipate dc to inpt rehab/swing bed next week. 11/20 Doing well, awaiting dc to rehab. 11/21 Doing well. Leg weakness improving. (2) Thoracic stenosis Current Visit: Yes Status: Chronic Assessment and Plan: 73-year-old male with history of psoriatic and a lumbar stenosis presented with acute onset of bilateral leg weakness and a decreased sensation behind the legs. MRI showed severe spinal stenosis on T10-T12. He underwent thoracic spine laminectomy of the T10-T12 on 11/17. Currently doing well, reported improved strength and sensation on both legs. Spine surgery following, appreciate help. (3) Morbid obesity Current Visit: No Status: Chronic Assessment and Plan: Weight control discussed with patient. (4) Hx of deep venous thrombosis Current Visit: No Status: Chronic Assessment and Plan: Discussed with ortho, Coumadin resumed today. (5) Degenerative disc disease Current Visit: No Status: Chronic Assessment and Plan: Continue pain control, management as above. (6) UTI (urinary tract infection) Current Visit: Yes Status: Acute Assessment and Plan: Patient has no urinary symptoms, received 2 days IV Rocephin and a one day IV vancomycin. Urine culture resulted received 11/18 from [facility], grew E. coli, sensitive to Keflex. IV abx changed to oral Kefelx 11/18, will complete 7 day course until 11/24. (7) Lumbar spinal stenosis Current Visit: No Status: Chronic Assessment and Plan: Stable. (8) DVT prophylaxis Current Visit: Yes Status: Acute Assessment and Plan: on coumadin.. - Time Spent with Patient Total time spent is greater than 50% in coordination of care (as documented) at patient's floor/unit and/or counseling patient: Greater than 35 minutes Plan of Care Discussed with: patient Internal Medicine: Result - Labs CBC & Chem 7: 11/21/18 05:29 11/21/18 05:29 Labs: Short CBC 11/21/18 Range/Units 05:29 WBC 15.2 H (4.3-11.1) K/mcL Hgb 11.3 L (12.9-16.9) g/dL Hct 38.0 (37.5-50.1) % Plt Count 260 (140-400) K/mcL BMP 11/21/18 05:29 Sodium 136 Potassium 4.3 Chloride 96 L Carbon Dioxide 29 BUN 20 Creatinine 0.91 Glucose 131 H Calcium 8.5 L - ABG Interpretation ABG results: PT/INR, D-dimer PT 13.2 Seconds (9.4-12.1) H 11/19/18 04:06 Consult Discharge Plan - Plan Referrals: Evelyn Hanley, PAC [Physician Asphalt Heater Operator] - 12/05/18 10:15 am (POW#2 [facility] T10- T12 11/17/18) Helga Ross, LABORATORY CHEMICAL ASSISTANT [Primary Care Provider] - (Please call Tuesday to schedule hospital follow up appointment for 7-10 days from date of discharge. ) (5) Degenerative disc disease Qualifiers: Spinal region: lumbar Qualified Code(s): M51.36 - Other intervertebral disc degeneration, lumbar region (6) UTI (urinary tract infection) Qualifiers: Urinary tract infection type: acute cystitis Hematuria presence: without hematuria Qualified Code(s): N30.00 - Acute cystitis without hematuria (7) Lumbar spinal stenosis Qualifiers: Neurogenic claudication status: without neurogenic claudication Qualified Code(s): M48.061 - Spinal stenosis, lumbar region without neurogenic claudication
[2018-11-21] MEDS: Ondansetron 4 MG/2 ML VIAL IVP PRN ×2 (15:28→22:07)
[2018-11-21] MEDS ORDERED: *HR* Promethazine 25 MG/ML VIAL IVP PRN (16:17)
[2018-11-21] MEDS ORDERED: Promethazine 25 MG in 0.9 % Sodium Chloride 50 ML IVPB PRN (16:20)
[2018-11-21] MEDS ORDERED: Warfarin perPT PO PRN (18:00)
[2018-11-21 20:31] LABS: Alanine Aminotransferase 14 Units/L (7-52); Albumin 3.5 g/dL (3.5-5.7); Alkaline Phosphatase 67 Units/L (34-104); Aspartate Amino Transferase 9 Units/L (13-39); BUN/Creatinine Ratio 22 (6-26); Bilirubin,Total 0.6 mg/dL (0.3-1.0); Blood Urea Nitrogen 18 mg/dL (8-23); Calcium 8.9 mg/dL (8.6-10.3); Carbon Dioxide 29 mEq/L (23-29); Chloride 96 mEq/L (98-107); Globulin 3.4 g/dL (2.4-3.5); Glucose 208 mg/dL (70-105); Osmolality,Calculated 282 (280-300); Potassium 4.4 mEq/L (3.5-5.1); Sodium 132 mEq/L (136-145); Total Protein 6.9 g/dL (6.4-8.9); eGFR For African Americans > 60 (> 60); eGFR For Non-African Americans > 60 (> 60)
[2018-11-21] MEDS: *HR* Warfarin 3 MG TABLET PO SCH (23:56)
[2018-11-22] MEDS: *HR* OxyCODONE Immed Rel 5 MG TABLET PO PRN ×2 (01:29→22:04)
[2018-11-22] MEDS ORDERED: Acetaminophen IV 1,000 MG/100 ML INFUS..BTL IVPB ONE (01:35)
[2018-11-22] MEDS: Ondansetron 4 MG/2 ML VIAL IVP PRN ×2 (04:17→22:04)
[2018-11-22] MEDS: *HR* HYDROcodone/Acet 5/325 mg TABLET PO PRN ×2 (04:19→14:09)
[2018-11-22 05:09] LABS: Basophils # 0.1 K/mcL (0.0-0.2); Basophils % 0.3 %; Eosinophils % 0.1 %; Hematocrit 42.3 % (37.5-50.1); Immature Granulocytes % 2.2 % (0-4); Lymphocytes # 1.7 K/mcL (0.6-4.6); Lymphocytes % 7.3 %; Mean Corpuscular HGB Conc 30.5 g/dL (31.6-35.5); Mean Corpuscular Hemoglobin 23.4 pg (28.0-33.3); Mean Corpuscular Volume 76.6 fL (83.0-100.0); Mean Platelet Volume 9.3 fL (9.4-12.4); Monocytes % 4.4 %; Neutrophils # 19.5 K/mcL (1.6-8.9); Platelet Count 295 K/mcL (140-400); Red Blood Count 5.52 M/mcL (4.19-5.50); Red Cell Distribution Width 14.8 % (11.5-14.5); Segmented Neutrophils % 85.7 %; White Blood Count 22.7 K/mcL (4.3-11.1)
[2018-11-22 05:14] LABS: Hemoglobin 12.9 g/dL (12.9-16.9)
[2018-11-22 05:19] LABS: INR 1.1; Prothrombin Time 12.8 Seconds (9.4-12.1)
[2018-11-22 05:31] LABS: BUN/Creatinine Ratio 21 (6-26); Blood Urea Nitrogen 18 mg/dL (8-23); Calcium 8.9 mg/dL (8.6-10.3); Carbon Dioxide 27 mEq/L (23-29); Chloride 96 mEq/L (98-107); Glucose 228 mg/dL (70-105); Osmolality,Calculated 283 (280-300); Potassium 4.2 mEq/L (3.5-5.1); Sodium 132 mEq/L (136-145); eGFR For African Americans > 60 (> 60); eGFR For Non-African Americans > 60 (> 60)
[2018-11-22] MEDS: Gabapentin 300 MG CAPSULE PO SCH ×3 (08:34→22:03)
[2018-11-22] MEDS: cephALEXin 500 MG CAPSULE PO SCH ×4 (08:34→22:03)
[2018-11-22] MEDS ORDERED: 0.9 % Sodium Chloride 1,000 ML IVC SCH (08:45)
[2018-11-22] MEDS: Pantoprazole 40 MG VIAL IVP SCH ×2 (09:22→16:57)
[2018-11-22 12:13] LABS: Alanine Aminotransferase 13 Units/L (7-52); Albumin 3.5 g/dL (3.5-5.7); Alkaline Phosphatase 80 Units/L (34-104); Aspartate Amino Transferase 11 Units/L (13-39); Bilirubin,Direct 0.1 mg/dL (0.0-0.2); Bilirubin,Indirect 0.4 mg/dL (0.0-1.2); Bilirubin,Total 0.5 mg/dL (0.3-1.0); Globulin 3.6 g/dL (2.4-3.5); Total Protein 7.1 g/dL (6.4-8.9)
--- NOTE | 2018-11-22 16:15 | Internal Med Progress Note ---
Hospitalist Progress Note - Encounter Date of Encounter: 11/22/18 Time of Encounter: 11:00 - Subjective Interval History: Nursing reports the patient has been nauseated and vomiting overnight. He was given Phenergan which did improve his symptoms. We will give IV fluids and make patient nothing by mouth for now obtained KUB. Discussed treatment plan with the patient who verbalizes understanding. - Exam Vitals: Temp Pulse Resp BP Pulse Ox 98.6 F 96 18 115/73 96 11/22/18 15:22 11/22/18 15:22 11/22/18 15:22 11/22/18 15:22 11/22/18 15:22 Exam: Gen.: Vitals noted. No acute distress. AAOx3, resting comfortably in bed. Morbidly obese. HEENT: PERRL/EOMI, oropharynx clear, Normocephalic, atraumatic, MMM Cardiac: RRR, no murmur, +S1/S2, 2+ BLE edema to mid calf Pulmonary: CTA bilaterally, no wheezes, rales or rhonchi, equal chest expansion, unlabored breathing Abdomen: soft, nontender, BS noted, no guarding, no palpable HSM. Colostomy in place, vental hernia Skin: warm and dry, no visible lesions. MSK: ROM passively intact but painful, no joint swelling noted, gait no assessed while in bed. Muscle strength 1/5 in bilateral LE. Reflexes unable to be elicited. Neuro: A&Ox3, muscle strength 3/5 on both legs but improved from 2/5 prior to surgery. Psych: Appropriate mood and behavior, AOx3 - Assessment and Plan (1) Morbid obesity Current Visit: No Status: Chronic Assessment and Plan: Weight control discussed with patient. (2) Hx of deep venous thrombosis Current Visit: No Status: Chronic Assessment and Plan: Discussed with ortho, Coumadin resumed (3) DVT prophylaxis Current Visit: Yes Status: Acute Assessment and Plan: on coumadin.. (4) Weakness Current Visit: Yes Status: Acute Assessment and Plan: 11/16 73-year-old male presented with acute onset of bilateral leg weakness accompanied by numbness. He has history of chronic back pain and back surgery, has baseline bilateral leg weakness and on wheelchair, but his baseline is that he was able to lift up both legs and put on socks, however, he cannot perform these for a week. Acute cord compression was suspected by neurology, IV steroids were started. Pending lumbar MRI. Neurology on board, appreciate help. 11/17 Lumbar spine MRI showed severe spinal stenosis at the T11-T12. Spinal surgery was consulted, thoracic spine MRI ordered. Continue IV steroids. INR 2.1 yesterday received vitamin K and FFP overnight, current INR 1.4. Neuro and orthopedics on board, appreciate help. 11/18 Status post T10-T12 spine laminectomy, patient reported improved weakness and sensation deficit. Orthopedics following, appreciate help. 11/19 Doing well. Anticipate dc to inpt rehab/swing bed next week. 11/20 Doing well, awaiting dc to rehab. 11/21 Doing well. Leg weakness improving. 11/22 Patient does express that his leg weakness is improving however he does not feel well today due to nausea and vomiting-he will go to inpatient rehabilitation for further treatment (5) Degenerative disc disease Current Visit: No Status: Chronic Assessment and Plan: Continue pain control, management as above. (6) UTI (urinary tract infection) Current Visit: Yes Status: Acute Assessment and Plan: Patient has no urinary symptoms, received 2 days IV Rocephin and a one day IV vancomycin. Urine culture resulted received 11/18 from [facility], grew E. coli, sensitive to Keflex. IV abx changed to oral Kefelx 11/18, will complete 7 day course until 11/24. 11/22 Cont with Keflex- patient began to vomit with elevation of white count- we will felipe culture - cont with Keflex - check urine (7) Lumbar spinal stenosis Current Visit: No Status: Chronic Assessment and Plan: Stable. per ortho : Continue with mobilization with therapy - no bending, twisting at waist. No lifting greater than 10 lbs. Short, frequent walks. Continue analgesics as needed Dressing change - s/w patient's nurse - leave dermabond mesh (Prineo) in place; change gauze and Medipore tape. Dressing changes Q48 hours to keep incision c/d while inpatient. Change more frequently if gets soiled/wet. Contact [facility] with any concerns re: incision care or activity restrictions. (8) Thoracic stenosis Current Visit: Yes Status: Chronic Assessment and Plan: 73-year-old male with history of psoriatic and a lumbar stenosis presented with acute onset of bilateral leg weakness and a decreased sensation behind the legs. MRI showed severe spinal stenosis on T10-T12. He underwent thoracic spine laminectomy of the T10-T12 on 11/17. Currently doing well, reported improved strength and sensation on both legs. Spine surgery following, appreciate help. (9) Leukocytosis Current Visit: Yes Status: Acute Assessment and Plan: White count is elevated at 22 no fevers slightly tachycardiac we will panculture patient-obtain blood cultures and urine culture GI panel patient has been vomiting overnight and check KUB for any obstruction. Continue with Keflex for now - Time Spent with Patient Total time spent is greater than 50% in coordination of care (as documented) at patient's floor/unit and/or counseling patient: Internal Medicine: Result - Labs CBC & Chem 7: 11/22/18 04:31 11/22/18 04:31 Labs: Short CBC 11/22/18 Range/Units 04:31 WBC 22.7 H (4.3-11.1) K/mcL Hgb 12.9 D (12.9-16.9) g/dL Hct 42.3 (37.5-50.1) % Plt Count 295 (140-400) K/mcL Neutrophils # 19.5 H (1.6-8.9) K/mcL BMP 11/21/18 11/22/18 19:43 04:31 Sodium 132 L 132 L Potassium 4.4 4.2 Chloride 96 L 96 L Carbon Dioxide 29 27 BUN 18 18 Creatinine 0.82 0.85 Glucose 208 H 228 H Calcium 8.9 8.9 Liver Function 11/21/18 11/22/18 Range/Units 19:43 04:31 Total Bilirubin 0.6 0.5 (0.3-1.0) mg/dL Direct Bilirubin 0.1 (0.0-0.2) mg/dL AST 9 L 11 L (13-39) Units/L ALT 14 13 (7-52) Units/L Alkaline Phosphatase 67 80 (34-104) Units/L Albumin 3.5 3.5 (3.5-5.7) g/dL - ABG Interpretation ABG results: PT/INR, D-dimer PT 12.8 Seconds (9.4-12.1) H 11/22/18 04:31 - Impressions Impressions Fluoroscopy 11/17/18 23:50 IMPRESSION: Intraoperative fluoroscopy for procedural guidance. D/ / Ray Hilario MD / Ray Hilario MD Interpreting Provider: Ray Hilario MD Consult Discharge Plan - Plan Referrals: Evelyn Hanley PAC [Physician Client Customer Manager] - 12/05/18 10:15 am (POW#2 [facility] T10- T12 11/17/18) Helga Ross, BATCH MIXER OPERATOR [Primary Care Provider] - (Please call Tuesday to schedule hospital follow up appointment for 7-10 days from date of discharge. ) (5) Degenerative disc disease Qualifiers: Spinal region: lumbar Qualified Code(s): M51.36 - Other intervertebral disc degeneration, lumbar region (6) UTI (urinary tract infection) Qualifiers: Urinary tract infection type: acute cystitis Hematuria presence: without hematuria Qualified Code(s): N30.00 - Acute cystitis without hematuria (7) Lumbar spinal stenosis Qualifiers: Neurogenic claudication status: without neurogenic claudication Qualified Code(s): M48.061 - Spinal stenosis, lumbar region without neurogenic claudication (9) Leukocytosis Qualifiers: Leukocytosis type: unspecified Qualified Code(s): D72.829 - Elevated white blood cell count, unspecified
[2018-11-22] MEDS: *HR* Warfarin 3 MG TABLET PO SCH (16:57)
[2018-11-22 17:13] LABS: Basophils % 0.1 %; Eosinophils # 0.1 K/mcL (0.0-0.6); Eosinophils % 0.4 %; Hematocrit 39.8 % (37.5-50.1); Hemoglobin 11.9 g/dL (12.9-16.9); Immature Granulocytes % 1.5 % (0-4); Lymphocytes # 2.3 K/mcL (0.6-4.6); Lymphocytes % 10.5 %; Mean Corpuscular HGB Conc 29.9 g/dL (31.6-35.5); Mean Platelet Volume 9.4 fL (9.4-12.4); Monocytes # 1.6 K/mcL (0.0-1.3); Monocytes % 7.1 %; Neutrophils # 17.7 K/mcL (1.6-8.9); Platelet Count 303 K/mcL (140-400); Red Blood Count 5.17 M/mcL (4.19-5.50); Segmented Neutrophils % 80.4 %
[2018-11-23 04:26] LABS: Bilirubin,Urine Negative (Negative); Blood,Urine Small (Negative); Clarity,Urine Clear (Clear); Color,Urine Yellow (Yellow); Glucose,Urine (UA) Normal (Normal); Ketones,Urine Negative (Negative); Leukocyte Esterase,Urine Moderate (Negative); Nitrite,Urine Negative (Negative); PH,Urine 6.5 pH Units (5.0-8.0); Protein,Urine Trace mg/dL (Neg-Trace); Urobilinogen,Urine Normal (Normal)
[2018-11-23] MEDS: *HR* OxyCODONE Immed Rel 5 MG TABLET PO PRN ×4 (04:26→20:41)
[2018-11-23] MEDS: Pantoprazole 40 MG VIAL IVP SCH ×2 (04:27→16:44)
[2018-11-23 04:28] LABS: Bacteria,Urine None Seen per hpf (None-Few); Hyaline Casts,Urine None Seen per lpf (None-Few); Squamous Epithelial Cell,Urine Many per lpf (None-Few); WBC,Urine 30-50 per hpf (0-3)
[2018-11-23 04:44] LABS: Renal Epithelial Cells,Urine Few per hpf (None-Few)
[2018-11-23] MEDS ORDERED: Isovue-370 500 ML BOTTLE IVP ONE (05:05)
[2018-11-23 05:24] LABS: Basophils % 0.2 %; Eosinophils # 0.2 K/mcL (0.0-0.6); Eosinophils % 1.2 %; Hematocrit 39.9 % (37.5-50.1); Hemoglobin 11.8 g/dL (12.9-16.9); Immature Granulocytes % 1.3 % (0-4); Lymphocytes # 3.2 K/mcL (0.6-4.6); Mean Corpuscular HGB Conc 29.6 g/dL (31.6-35.5); Mean Corpuscular Hemoglobin 22.8 pg (28.0-33.3); Mean Corpuscular Volume 77.2 fL (83.0-100.0); Mean Platelet Volume 9.2 fL (9.4-12.4); Monocytes # 1.7 K/mcL (0.0-1.3); Monocytes % 8.3 %; Neutrophils # 14.7 K/mcL (1.6-8.9); Platelet Count 316 K/mcL (140-400); Red Blood Count 5.17 M/mcL (4.19-5.50); Red Cell Distribution Width 15.2 % (11.5-14.5); White Blood Count 20.2 K/mcL (4.3-11.1)
[2018-11-23 05:30] LABS: INR 1.3; Prothrombin Time 14.2 Seconds (9.4-12.1)
[2018-11-23 05:43] LABS: BUN/Creatinine Ratio 24 (6-26); Blood Urea Nitrogen 19 mg/dL (8-23); Calcium 8.7 mg/dL (8.6-10.3); Carbon Dioxide 29 mEq/L (23-29); Chloride 100 mEq/L (98-107); Glucose 133 mg/dL (70-105); Osmolality,Calculated 286 (280-300); Potassium 4.1 mEq/L (3.5-5.1); Sodium 136 mEq/L (136-145); eGFR For African Americans > 60 (> 60); eGFR For Non-African Americans > 60 (> 60)
[2018-11-23] MEDS: cefTRIAXone 1,000 MG in Water for inj. (sterile) 10 ML IVPB SCH (06:44)
[2018-11-23] MEDS: *HR* HYDROcodone/Acet 5/325 mg TABLET PO PRN ×2 (06:44→12:41)
[2018-11-23 06:53] LABS: Adenovirus F 40/41 PCR Not detected (Not detect); Astrovirus PCR Not detected (Not detect); C.difficile Toxin A/B Gene PCR Not detected (Not detect); Campylobacter by PCR Not detected (Not detect); Cryptosporidium by PCR Not detected (Not detect); Cyclospora cayetanensis PCR Not detected (Not detect); E. coli O157 by PCR Not detected (Not detect); Entamoeba histolytica PCR Not detected (Not detect); Enteroaggregative E.coli(EAEC) Not detected (Not detect); Enteropathogenic E.coli(EPEC) Not detected (Not detect); Enterotoxigenic E.coli (ETEC) Not detected (Not detect); Giardia lamblia PCR Not detected (Not detect); Norovirus GI/GII PCR Not detected (Not detect); Plesiomonas shigelloides PCR Not detected (Not detect); Rotavirus A PCR Not detected (Not detect); Salmonella PCR Not detected (Not detect); Sapovirus PCR Not detected (Not detect); Shig/EnteroinvasiveE coli EIEC Not detected (Not detect); Shigalike tox-prod E coli STEC Not detected (Not detect); Vibrio PCR Not detected (Not detect); Vibrio cholerae PCR Not detected (Not detect); Yersinia enterocolitica PCR Not detected (Not detect)
[2018-11-23] MEDS: Gabapentin 300 MG CAPSULE PO SCH ×3 (08:36→20:42)
[2018-11-23] MEDS: 0.9 % Sodium Chloride 1,000 ML IVC SCH (08:38)
--- NOTE | 2018-11-23 14:08 | Internal Med Progress Note ---
Hospitalist Progress Note - Encounter Date of Encounter: 11/23/18 Time of Encounter: 10:00 - Subjective Interval History: Patient was seen and examined at bedside currently does not experience any nausea vomiting tolerate clear liquids well does complain of some back pain. I did review results of CAT scan and no ileus found or blockage. Patient verbal ized understanding we will attempt to advance diet. - Exam Vitals: Temp Pulse Resp BP Pulse Ox 98.0 F 77 18 91/54 98 11/23/18 11:25 11/23/18 11:25 11/23/18 11:25 11/23/18 11:25 11/23/18 11:25 Exam: Gen.: Vitals noted. No acute distress. AAOx3, resting comfortably in bed. Morbidly obese. HEENT: PERRL/EOMI, oropharynx clear, Normocephalic, atraumatic, MMM Cardiac: RRR, no murmur, +S1/S2, 2+ BLE edema to mid calf Pulmonary: CTA bilaterally, no wheezes, rales or rhonchi, equal chest expansion, unlabored breathing Abdomen: soft, nontender, BS noted, no guarding, no palpable HSM. Colostomy in place, vental hernia Skin: warm and dry, no visible lesions. MSK: ROM passively intact but painful, no joint swelling noted, gait no assessed while in bed. Muscle strength 1/5 in bilateral LE. Reflexes unable to be elicited. Neuro: A&Ox3, muscle strength 3/5 on both legs but improved from 2/5 prior to surgery. Psych: Appropriate mood and behavior, AOx3 - Assessment and Plan (1) Morbid obesity Current Visit: No Status: Chronic Assessment and Plan: Weight control discussed with patient. (2) Hx of deep venous thrombosis Current Visit: No Status: Chronic Assessment and Plan: Coumadin resumed (3) DVT prophylaxis Current Visit: Yes Status: Acute Assessment and Plan: on coumadin.. (4) Weakness Current Visit: Yes Status: Acute Assessment and Plan: 11/16 73-year-old male presented with acute onset of bilateral leg weakness accompanied by numbness. He has history of chronic back pain and back surgery, has baseline bilateral leg weakness and on wheelchair, but his baseline is that he was able to lift up both legs and put on socks, however, he cannot perform these for a week. Acute cord compression was suspected by neurology, IV steroids were started. Pending lumbar MRI. Neurology on board, appreciate help. 11/17 Lumbar spine MRI showed severe spinal stenosis at the T11-T12. Spinal surgery was consulted, thoracic spine MRI ordered. Continue IV steroids. INR 2.1 yesterday received vitamin K and FFP overnight, current INR 1.4. Neuro and orthopedics on board, appreciate help. 11/18 Status post T10-T12 spine laminectomy, patient reported improved weakness and sensation deficit. Orthopedics following, appreciate help. 11/19 Doing well. Anticipate dc to inpt rehab/swing bed next week. 11/20 Doing well, awaiting dc to rehab. 11/21 Doing well. Leg weakness improving. 11/22 Patient does express that his leg weakness is improving however he does not feel well today due to nausea and vomiting-he will go to inpatient rehabilitation for further treatment 11/23 Awaiting discharge to rehabilitation (5) Degenerative disc disease Current Visit: No Status: Chronic Assessment and Plan: Continue pain control, management as above. (6) UTI (urinary tract infection) Current Visit: Yes Status: Acute Assessment and Plan: Patient has no urinary symptoms, received 2 days IV Rocephin and a one day IV vancomycin. Urine culture resulted received 11/18 from [facility], grew E. coli, sensitive to Keflex. IV abx changed to oral Kefelx 11/18, will complete 7 day course until 11/24. 11/22 Cont with Keflex- patient began to vomit with elevation of white count- we will felipe culture - cont with Keflex - check urine 11/23 Repeat Urinalysis with nitrates several urine culture will place on Rocephin (7) Lumbar spinal stenosis Current Visit: No Status: Chronic Assessment and Plan: Stable. per ortho : Continue with mobilization with therapy - no bending, twisting at waist. No lifting greater than 10 lbs. Short, frequent walks. Continue analgesics as needed Dressing change - s/w patient's nurse - leave dermabond mesh (Prineo) in place; change gauze and Medipore tape. Dressing changes Q48 hours to keep incision c/d while inpatient. Change more frequently if gets soiled/wet. Contact [facility] with any concerns re: incision care or activity restrictions. (8) Thoracic stenosis Current Visit: Yes Status: Chronic Assessment and Plan: 73-year-old male with history of psoriatic and a lumbar stenosis presented with acute onset of bilateral leg weakness and a decreased sensation behind the legs. MRI showed severe spinal stenosis on T10-T12. He underwent thoracic spine laminectomy of the T10-T12 on 11/17. Currently doing well, reported improved strength and sensation on both legs. Spine surgery following, appreciate help. (9) Leukocytosis Current Visit: Yes Status: Acute Assessment and Plan: White count is elevated at 22 no fevers slightly tachycardiac we will panculture patient-obtain blood cultures and urine culture GI panel patient has been vomiting overnight and check KUB for any obstruction. Continue with Keflex for now 11/23 Appears to be trending down may be reflux we will place on Rocephin pending culture- felipe culture (10) Nausea & vomiting Current Visit: No Status: Acute Assessment and Plan: 1 patient had nausea and vomiting yesterday which has improved KUB was completed which suspicious for small bowel obstruction obtain CT abdomen and pelvis with contrast-IMPRESSION: No evidence for bowel obstruction or other acute abnormality. - Time Spent with Patient Total time spent is greater than 50% in coordination of care (as documented) at patient's floor/unit and/or counseling patient: Internal Medicine: Result - Labs CBC & Chem 7: 11/23/18 04:16 11/23/18 04:16 Labs: Short CBC 11/22/18 11/23/18 Range/Units 16:43 04:16 WBC 22.0 H 20.2 H (4.3-11.1) K/mcL Hgb 11.9 L 11.8 L (12.9-16.9) g/dL Hct 39.8 39.9 (37.5-50.1) % Plt Count 303 316 (140-400) K/mcL Neutrophils # 17.7 H 14.7 H (1.6-8.9) K/mcL BMP 11/23/18 04:16 Sodium 136 Potassium 4.1 Chloride 100 Carbon Dioxide 29 BUN 19 Creatinine 0.79 Glucose 133 H Calcium 8.7 Urine 11/23/18 Range/Units 04:00 Urine Color Yellow (Yellow) Urine Clarity Clear (Clear) Urine pH 6.5 (5.0-8.0) pH Units Ur Specific [place] 1.020 (1.010-1.025) Urine Protein Trace (Neg-Trace) mg/dL Urine Glucose (UA) Normal (Normal) mg/dL - ABG Interpretation ABG results: PT/INR, D-dimer PT 14.2 Seconds (9.4-12.1) H 11/23/18 04:16 - Impressions Impressions KUB X-Ray 11/22/18 10:25 IMPRESSION: Findings suggest a small bowel obstruction. D/ / Ray Hilario MD / Ray Hilario MD Interpreting Provider: Ray Hilario MD Abdomen/Pelvis CT 11/23/18 05:05 IMPRESSION: No evidence for bowel obstruction or other acute abnormality. D/ / Ray Hilario MD / Ray Hilario MD Interpreting Provider: Ray Hilario MD Consult Discharge Plan - Plan Referrals: Evelyn Hanley, PAC [Physician Bar Attendant] - 12/05/18 10:15 am (POW#2 [facility] T10- T12 11/17/18) Helga Ross, ADJUNCT INSTRUCTOR IN ECONOMICS [Primary Care Provider] - () (5) Degenerative disc disease Qualifiers: Spinal region: lumbar Qualified Code(s): M51.36 - Other intervertebral disc degeneration, lumbar region (6) UTI (urinary tract infection) Qualifiers: Urinary tract infection type: acute cystitis Hematuria presence: without hematuria Qualified Code(s): N30.00 - Acute cystitis without hematuria (7) Lumbar spinal stenosis Qualifiers: Neurogenic claudication status: without neurogenic claudication Qualified Code(s): M48.061 - Spinal stenosis, lumbar region without neurogenic claudication (9) Leukocytosis Qualifiers: Leukocytosis type: unspecified Qualified Code(s): D72.829 - Elevated white blood cell count, unspecified (10) Nausea & vomiting Qualifiers: Vomiting type: unspecified Vomiting Intractability: non-intractable Qualified Code(s): R11.2 - Nausea with vomiting, unspecified
[2018-11-23] MEDS: *HR* Warfarin 3 MG TABLET PO SCH (16:44)
[2018-11-24] MEDS: *HR* OxyCODONE Immed Rel 5 MG TABLET PO PRN ×3 (00:55→13:41)
[2018-11-24] MEDS: Ondansetron 4 MG/2 ML VIAL IVP PRN ×2 (00:55→14:43)
[2018-11-24] MEDS: 0.9 % Sodium Chloride 1,000 ML IVC SCH (04:07)
[2018-11-24] MEDS: cefTRIAXone 1,000 MG in Water for inj. (sterile) 10 ML IVPB SCH (05:12)
[2018-11-24] MEDS: Pantoprazole 40 MG VIAL IVP SCH (05:13)
[2018-11-24 06:16] LABS: INR 1.4; Prothrombin Time 15.4 Seconds (9.4-12.1)
[2018-11-24 06:18] LABS: Basophils % 0.2 %; Platelet Count 283 K/mcL (140-400)
[2018-11-24 06:20] LABS: Eosinophils # 0.2 K/mcL (0.0-0.6); Eosinophils % 0.9 %; Hematocrit 38.6 % (37.5-50.1); Immature Granulocytes % 1.1 % (0-4); Lymphocytes # 2.2 K/mcL (0.6-4.6); Lymphocytes % 11.7 %; Mean Corpuscular HGB Conc 28.5 g/dL (31.6-35.5); Mean Corpuscular Hemoglobin 22.8 pg (28.0-33.3); Mean Corpuscular Volume 79.9 fL (83.0-100.0); Mean Platelet Volume 9.4 fL (9.4-12.4); Monocytes # 1.1 K/mcL (0.0-1.3); Neutrophils # 14.9 K/mcL (1.6-8.9); Red Blood Count 4.83 M/mcL (4.19-5.50); Red Cell Distribution Width 15.2 % (11.5-14.5); Segmented Neutrophils % 80.1 %; White Blood Count 18.6 K/mcL (4.3-11.1)
[2018-11-24 06:25] LABS: BUN/Creatinine Ratio 18 (6-26); Blood Urea Nitrogen 16 mg/dL (8-23); Calcium 8.5 mg/dL (8.6-10.3); Carbon Dioxide 25 mEq/L (23-29); Chloride 99 mEq/L (98-107); Glucose 231 mg/dL (70-105); Osmolality,Calculated 295 (280-300); Potassium 4.2 mEq/L (3.5-5.1); Sodium 138 mEq/L (136-145); eGFR For African Americans > 60 (> 60); eGFR For Non-African Americans > 60 (> 60)
[2018-11-24 06:44] LABS: Hypochromasia Present (Not Present); Platelet Estimate Normal (Normal)
[2018-11-24 07:16] VITALS: BP 104/68
[2018-11-24] MEDS: Gabapentin 300 MG CAPSULE PO SCH ×2 (08:50→14:43)
--- NOTE | 2018-11-24 10:53 | Discharge Summary ---
- NOTES TO OUTPATIENT PROVIDER Notes to Outpatient Provider: Patient underwent laminectomy will need follow-up with orthopedics-will be discharged to [facility] for rehabilitation. Treated for urinary tract infection original urine culture did grow Escherichia coli we will continue Omnicef-for 3 more days Orders not resulted at time of discharge: Pending orders 11/22/18 16:43 Culture,Blood [BC] Routine 11/23/18 04:00 Culture,Urine [RM] Routine 11/25/18 04:00 Prothrombin Time INR [COAG] AM 0400 11/26/18 04:00 Prothrombin Time INR [COAG] AM 0400 11/27/18 04:00 Prothrombin Time INR [COAG] AM 0400 Date of Encounter: 11/24/18 Time of Encounter: 10:51 - Discharge Diagnosis (1) Morbid obesity Priority: Secondary Status: Chronic (2) Hx of deep venous thrombosis Priority: Secondary Status: Chronic (3) Weakness Priority: Secondary Status: Acute (4) Degenerative disc disease Priority: Secondary Status: Chronic Qualifiers: Spinal region: lumbar Qualified Code(s): M51.36 - Other intervertebral disc degeneration, lumbar region (5) UTI (urinary tract infection) Priority: Secondary Status: Acute Qualifiers: Urinary tract infection type: acute cystitis Hematuria presence: without hematuria Qualified Code(s): N30.00 - Acute cystitis without hematuria (6) Lumbar spinal stenosis Priority: Secondary Status: Chronic Qualifiers: Neurogenic claudication status: without neurogenic claudication Qualified Code(s): M48.061 - Spinal stenosis, lumbar region without neurogenic claudication (7) Thoracic stenosis Priority: Secondary Status: Chronic (8) Leukocytosis Priority: Secondary Status: Acute Qualifiers: Leukocytosis type: unspecified Qualified Code(s): D72.829 - Elevated white blood cell count, unspecified (9) Nausea & vomiting Priority: Secondary Status: Acute Qualifiers: Vomiting type: unspecified Vomiting Intractability: non-intractable Qualified Code(s): R11.2 - Nausea with vomiting, unspecified Hospital course: Mr. Perez is a 73 year old male past medical history of COPD CHF CK D chronic back pain presented to [facility] ER with complaints of increased lower extremity weakness. Patient states he is normally wheelchair-bound at home due to chronic degenerative disc disease for the past 10 years. But he has noticed increased difficulty and moving his lower extremities experiencing both pain as well as weakness. He also says increased numbness in his posterior legs extending to his bed hamstrings. He also is experiencing urinary incontinence His patient has had multiple back surgeries in the past with most recent occurring around 2005. He does follow with pain management and has tried epidurals and ablations in the past. He was transferred to skilled facility for further treatment he was evaluated by neurology as well as orthopedic spine. MRI of spine was completed which did show severe central canal stenosis at T10-11 and T11-12 mild central canal stenosis T7-8 T8-9 and T9-10 and small disc protrusion at T4-5 and T5-6-T12 laminectomy. Evaluated by neurology who recommended orthopedic spine evaluation Patient was evaluated by orthospine and recommended laminectomy [id number] laminectomy on 11/18/2018-tolerated procedure well-patient did experience nausea and vomiting 11/21/18 which continued throughout the night. KUB was obtained which was suspicious for small bowel obstruction underwent CT of abdomen and pelvis which no evidence of bowel obstruction or other acute abnormalities. GI panel is negative he did have some leukocytosis urine culture was sent. He was given antiemetics and IV fluids and placed on IV Rocephin. His nausea and vomiting improved he has been tolerating solid food and his white count is trending down no fevers. Patient will be transitioned to Omnicef 3 days as well as place on Coumadin 6 mg 1 tonight due to subtherapeutic INR and continue with his normal dose of 3 mg daily recheck INR next week. Abdomen soft and nontender. Currently patient denies any pain or discomfort and feels that his lower extremities have more movement he will be discharged to [facility] for further rehabilitation. He is hemodynamically stable at this time. - Time Spent with Patient Total time spent providing and/or coordinating discharge services: - Discharge Medications Prescriptions: New HYDROcodone/Acet 5/325 mg [[place] 5-325 mg] 1 tab PO Q6HR PRN 1 Days #4 tablet PRN Reason: Moderate Pain Cefdinir [Omnicef] 300 mg PO BID 3 Days #9 capsule Lisinopril [Zestril] 2.5 mg PO DAILY tablet Warfarin [Coumadin] 6 mg PO 1800 1 Days #2 tablet Continued Tamsulosin [Flomax] 0.4 mg PO DAILY Nystatin POWDER [Nystop] 1 appl TP TID PRN PRN Reason: Rash Oxybutynin Chloride [Ditropan XL] 5 mg PO DAILY Albuterol Sulfate [Proventil Inhaler] 2 puff IH [id number] PRN inhaler PRN Reason: Dyspnea Gabapentin [Neurontin] 600 mg PO TID Warfarin Sodium 3 mg PO DAILY Discontinued Lisinopril 1.25 mg PO DAILY No Action Pregabalin [Lyrica] 150 mg PO BID Home Medications: Nystatin POWDER [Nystop] 1 appl TP TID PRN 05/31/18 [History] Tamsulosin [Flomax] 0.4 mg PO DAILY 05/31/18 [History] Oxybutynin Chloride [Ditropan XL] 5 mg PO DAILY 06/01/18 [History] Pregabalin [Lyrica] 150 mg PO BID 06/02/18 [History] Albuterol Sulfate [Proventil Inhaler] 2 puff IH [id number] PRN inhaler 06/05/18 [Rx] Gabapentin [Neurontin] 600 mg PO TID 11/15/18 [History] Warfarin Sodium 3 mg PO DAILY 11/16/18 [History] Cefdinir [Omnicef] 300 mg PO BID 3 Days #9 capsule 11/24/18 [Rx] HYDROcodone/Acet 5/325 mg [[place] 5-325 mg] 1 tab PO Q6HR PRN 1 Days #4 tablet 11/24/18 [Rx] Lisinopril [Zestril] 2.5 mg PO DAILY tablet 11/24/18 [Rx] Warfarin [Coumadin] 6 mg PO 1800 1 Days #2 tablet 11/24/18 [Rx] Allergies/Adverse Reactions: Allergy/AdvReac Type Severity Reaction Status Date / Time No Known Allergies Allergy Verified 06/01/18 16:44 Date of admission: 11/17/18 12:42 Primary care physician: Helga Ross CNP Consults: 11/15/18 22:45 Consult to Neurology [CONS] Routine Consulting Provider: Neurology [facility] Reason for Consult: Bilateral weakness, numbness Call Completed: No Consult to Physician [CONS] Routine Consulting Provider: Maksim Mercado Jr Reason for Consult: Bilateral LE weakness, urinary incontinence. Call Completed: No 11/15/18 23:43 Consult to Wound Care [CONS] Routine Reason for Consult: Wounds, wheelchair bound Call Completed: No 11/16/18 15:52 Consult to Orthopedic Surgery [CONS] Routine Consulting Provider: Orthopedic and Sports Medicine Reason for Consult: spinal stenosis Call Completed: Yes 11/17/18 11:13 Consult to Occupational Therapy [CONS] Routine Comment: Evaluate, develop and implement POC Reason for Consult: WEAKNESS Does patient have active BEDREST order?: No Is patient medically & hemodynamically stable?: Yes Consult to Physical Therapy [CONS] Routine Comment: Evaluate, develop and implement POC Reason for Consult: WEAKNESS Does patient have active BEDREST order?: No Is patient medically & hemodynamically stable?: Yes 11/18/18 03:44 Consult to Nurse Navigator [CONS] Routine Comment: spine navigator Consult to Occupational Therapy [CONS] Routine Comment: Evaluate, develop and implement POC Reason for Consult: Postoperative rehabilitation Does patient have active BEDREST order?: No Is patient medically & hemodynamically stable?: Yes Patient assessed for mobility or mobilized this visit?: No Consult to Physical Therapy [CONS] Routine Comment: Evaluate, develop and implement POC Reason for Consult: Postoperative rehabilitation Does patient have active BEDREST order?: No Is patient medically & hemodynamically stable?: Yes Patient assessed for mobility or mobilized this visit?: No Consult to Manager Technical Training [CONS] Routine Reason for SW Consult: Rehabilitation placement Discharging clinician: Jade Lucio Anticipated date of discharge: 11/24/18 - Constitutional Vitals: Temp Pulse Resp BP Pulse Ox 98.0 F 86 14 104/68 98 11/24/18 07:15 11/24/18 07:15 11/24/18 07:15 11/24/18 07:15 11/24/18 07:15 General appearance: Present: cooperative, A&O X 3, pleasant Exam: Skin: Free of rash and discoloration. Eyes: Sclera is white. There is no discharge from eyes. ENMT: Oral/pharyngeal mucosa is normal in appearance. There is no discharge from nose or ears. Respiratory: Normal breath sounds with no crackles and wheezes bilaterally. CV: Heart is regular with no gallop or murmur. GI: Abdomen is flat and soft with no palpable mass or visceromegaly. : There is no tenderness in patient's flanks bilaterally. Neuro exam: He has good strength in upper and lower extremities. He has normal eye movements. Psychiatric: He has normal affect. His thought process is appropriate to the situation. - Patient Status Disposition: Transfer SNF Functional capacity at discharge: wheelchair bound Overall status at discharge: patient is back to baseline - Discharge Instructions Follow Up With: Evelyn Hanley, PAC [Physician Fur Pointer] - 12/05/18 10:15 am (POW#2 Lami T10- T12 11/17/18) Helga Ross, HOSPITALITY HOST [Primary Care Provider] - () - Diet and Activity Activity: as per physical therapy Diet: advance to your usual diet
--- NOTE | 2018-11-24 13:11 | Orthopedics Progress Note ---
Date of Encounter: 11/24/18 Time of Encounter: 12:00 - Assessment and Plan (1) Bilateral leg weakness Status: Acute (2) Thoracic stenosis Status: Chronic (3) Status post laminectomy Status: Acute Subjective Principal diagnosis: spinal stenosis Interval history: POD# 6 s/p Laminectomy T10-T12 [Thoracic stenosis, bilateral leg weakness] 11/18/18 The patient is without complaints. He admits his legs have less pain and improved motion though he admits to a long standing history of neuropathy that severely limits his toe motion/sensation. He states he is going to rehab for his recovery. Vitals and labwork reviewed. Patient asleep upon arrival. Easily awoken. Alert and oriented x 3. Patient noted to have brooks boots to b/l heels. Dressing intact - scant serous drainage noted mid incision. No calf tenderness, erythema, warmth. Ankle dorsiflexion intact bilaterally. No toe motion bilaterally noted. Patient reports intact sensation to palpation b/l LE. Continue with mobilization with therapy - no bending, twisting at waist. No lifting greater than 10 lbs. Short, frequent walks. Continue analgesics as needed Discharge planning ongoing via social work Dressing change ordered today - s/w patient's nurse - leave dermabond mesh (Prineo) in place; change gauze and Medipore tape. Dressing changes QD with Betadine swabs. Change more frequently if gets soiled/wet. Contact [facility] with any concerns re: incision care or activity restrictions. Patient case reviewed with Dr. Mercado Objective Vital signs: Vital Signs Temp Pulse Resp BP Pulse Ox 11/24/18 07:15 98.0 F 86 14 104/68 98 11/24/18 03:33 98.0 F 82 14 160/76 97 11/23/18 23:08 98.6 F 82 14 106/63 96 11/23/18 19:02 98.5 F 82 16 101/56 96 11/23/18 15:32 98.6 F 84 19 126/74 95 Intake and Output 11/23/18 11/24/18 11/24/18 23:59 07:59 15:59 Intake Total 130 / 130 1000 / 1000 Output Total 1650 / 1650 Balance 130 / -270 -650 / -650 Intake: IV Fluids 1000 / 1000 0.9 % Sodium Chloride 1,000 ML 1000 / 1000 @ 50 mls/hr IVC .Q20H [facility] Rx#: [id number] Rocephin 1,000 MG In Water for inj. (sterile) 10 ML @ 600 mls/ hr IVPB Q24H [facility] Rx#:[id number] Oral 120 / 120 Output: Stool 900 / 900 Catheter 750 / 750 Urethral (Reinoso) 750 / 750 Other: Meal Dinner Breakfast Percent of Meal Consumed 25% 0% Stool Consistency liquid Stool Color Brown - Labs CBC & BMP: 11/24/18 05:47 11/24/18 05:47 Labs: Abnormal lab results WBC 18.6 K/mcL (4.3-11.1) H 11/24/18 05:47 RBC 5.52 M/mcL (4.19-5.50) H 11/22/18 04:31 Hgb 11.0 g/dL (12.9-16.9) L 11/24/18 05:47 Hct 35.7 % (37.5-50.1) L 11/19/18 04:06 MCV 79.9 fL (83.0-100.0) L 11/24/18 05:47 MCH 22.8 pg (28.0-33.3) L 11/24/18 05:47 MCHC 28.5 g/dL (31.6-35.5) L 11/24/18 05:47 RDW 15.2 % (11.5-14.5) H 11/24/18 05:47 MPV 9.2 fL (9.4-12.4) L 11/23/18 04:16 Neutrophils # 14.9 K/mcL (1.6-8.9) H 11/24/18 05:47 Monocytes # 1.7 K/mcL (0.0-1.3) H 11/23/18 04:16 Hypochromasia Present (Not Present) A 11/24/18 05:47 PT 15.4 Seconds (9.4-12.1) H 11/24/18 05:47 Sodium 132 mEq/L (136-145) L 11/22/18 04:31 Chloride 96 mEq/L (98-107) L 11/22/18 04:31 BUN 24 mg/dL (8-23) H 11/17/18 07:15 Glucose 231 mg/dL (70-105) H 11/24/18 05:47 Calcium 8.5 mg/dL (8.6-10.3) L 11/24/18 05:47 AST 11 Units/L (13-39) L 11/22/18 04:31 Globulin 3.6 g/dL (2.4-3.5) H 11/22/18 04:31 Albumin/Globulin Ratio 1.0 (1.1-2.2) L 11/22/18 04:31 Urine Blood Small (Negative) H 11/23/18 04:00 Ur Leukocyte Esterase Moderate (Negative) H 11/23/18 04:00 Urine Microscopic RBC 5-15 per hpf (0-3) H 11/23/18 04:00 Urine Microscopic WBC 30-50 per hpf (0-3) H 11/23/18 04:00 Ur Squamous Epith Cells Many per lpf (None-Few) H 11/23/18 04:00 Ur Culture Indicated? YES (NO) A 11/23/18 04:00 Nasal Screen MRSA (PCR) Positive (Negative) A 11/16/18 09:30 Consult Discharge Plan - Plan Referrals: Evelyn Hanley, PAC [Physician Manager Strategic Marketing] - 12/05/18 10:15 am (POW#2 Lami T10- T12 11/17/18) Helga Ross, NUT STEAMER [Primary Care Provider] - () Prescriptions: Warfarin [Coumadin] 6 mg PO 1800 1 Days #2 tablet HYDROcodone/Acet 5/325 mg [[place] 5-325 mg] 1 tab PO Q6HR PRN 1 Days #4 tablet PRN Reason: Moderate Pain Cefdinir [Omnicef] 300 mg PO BID 3 Days #9 capsule
--- NOTE | 2018-11-24 13:17 | Physician Discharge Referral ---
<RhettEvelyn E - Last Filed: 11/24/18 13:14> - Diagnosis (1) Bilateral leg weakness Status: Acute (2) Thoracic stenosis Status: Chronic (3) Status post laminectomy Status: Acute - Transfer Medications Prescriptions: Warfarin [Coumadin] 6 mg PO 1800 1 Days #2 tablet HYDROcodone/Acet 5/325 mg [[place] 5-325 mg] 1 tab PO Q6HR PRN 1 Days #4 tablet PRN Reason: Moderate Pain Cefdinir [Omnicef] 300 mg PO BID 3 Days #9 capsule Home Medications: Nystatin POWDER [Nystop] 1 appl TP TID PRN 05/31/18 [History] Tamsulosin [Flomax] 0.4 mg PO DAILY 05/31/18 [History] Oxybutynin Chloride [Ditropan XL] 5 mg PO DAILY 06/01/18 [History] Pregabalin [Lyrica] 150 mg PO BID 06/02/18 [History] Albuterol Sulfate [Proventil Inhaler] 2 puff IH [id number] PRN inhaler 06/05/18 [Rx] Gabapentin [Neurontin] 600 mg PO TID 11/15/18 [History] Warfarin Sodium 3 mg PO DAILY 11/16/18 [History] Cefdinir [Omnicef] 300 mg PO BID 3 Days #9 capsule 11/24/18 [Rx] HYDROcodone/Acet 5/325 mg [[place] 5-325 mg] 1 tab PO Q6HR PRN 1 Days #4 tablet 11/24/18 [Rx] Lisinopril [Zestril] 2.5 mg PO DAILY tablet 11/24/18 [Rx] Warfarin [Coumadin] 6 mg PO 1800 1 Days #2 tablet 11/24/18 [Rx] Allergies/Adverse Reactions: Allergy/AdvReac Type Severity Reaction Status Date / Time No Known Allergies Allergy Verified 06/01/18 16:44 - Respiratory Orders Smoking Cessation: Smoking cessation has been advised. For more information, call the [place] Tobacco Quit Line at 0-722-MMNR-NOW. - Rehabiliation Orders Rehab Orders: Evaluation for Physical Therapy, Evaluation for Occupational Therapy Other: No bending, twisting at waist. No lifting greater than 10 lbs. Short, frequent walks with walker. Leave dermabond mesh (Prineo) in place; change gauze and Medipore tape DAILY. Dressing change ORDERS: DAILY change dressing and paint incision with Betadine swabs, then replace dressing with 10pk STERILE gauze shingled along incision and secure with Medipore (Coverall) tape. Change more frequently if gets soiled/wet. Contact [facility] with any concerns re: incision care/appearance/increase in drainage/smell or activity restrictions at [phone]. Keep outpatient orthopedic follow up as scheduled CERTIFICATION: I certify that the transfer of the above named patient to an Extended Care Facility is necessary for the continuing treatment of the diagnosis listed. The above information is true and accurate reflection of patient's current condition. Confidential - Redisclosure prohibited without a patient's written consent. <Jade Lucio - Last Filed: 11/24/18 13:34> [facility] Provider in Charge: Jade Lucio Provider in Charge after Transfer: PCP Institutional Level of Care: Skilled - Diagnosis (1) Morbid obesity Priority: Secondary Status: Chronic (2) Hx of deep venous thrombosis Priority: Secondary Status: Chronic (3) Weakness Priority: Primary Status: Acute (4) Degenerative disc disease Priority: Secondary Status: Chronic (5) UTI (urinary tract infection) Priority: Secondary Status: Acute (6) Lumbar spinal stenosis Status: Chronic (7) Thoracic stenosis Priority: Secondary Status: Chronic (8) Leukocytosis Priority: Secondary Status: Acute (9) Nausea & vomiting Priority: Secondary Status: Acute - Respiratory Orders Smoking Cessation: Smoking cessation has been advised. For more information, call the [place] Tobacco Quit Line at 5-107-BBBR-NOW. - Advance Directives Code Status: Full Code - Diet Orders Cardiac CERTIFICATION: I certify that the transfer of the above named patient to an Extended Care Facility is necessary for the continuing treatment of the diagnosis listed. The above information is true and accurate reflection of patient's current condition. Confidential - Redisclosure prohibited without a patient's written consent.
[2018-11-24] MEDS ORDERED: *HR* Warfarin 3 MG TABLET PO ONE (18:00)
== END 2018-11-24 16:00 | DRG 516 ==
LOC: 3BNU
PROVIDERS: ADMIT Internal Medicine; ATTEND Internal Medicine